=== PATIENT | female | born 1980 | race Caucasian/White ===

== ENCOUNTER → 2018-01-08 12:10 | Outpatient (CLI) | payer BC, SELFPAY ==
--- NOTE | 2018-01-08 12:09 | US_ITS ---
STUDY: ABDOMINAL ULTRASOUND - RIGHT UPPER QUADRANT REASON FOR VISIT: Female, 38 years old. RUQ PAIN X 6 MONTHS F/U 09/28/16 CT HX OF KIDNEY STONES TECHNIQUE: Ultrasound evaluation of the right upper quadrant was performed with real-time and static cristobal-scale imaging. TECHNICAL QUALITY: Adequate. COMPARISON: 09.28.16 CT FINDINGS: Liver: The liver measures 16.6 cm. There is increased echogenicity consistent with fatty infiltration. The bile ducts are within normal limits. There is hepatic color flow. The direction of portal flow is hepatopetal. There is demonstrated mass lesion. Lesions or echogenic and measure 13 x 12 mm and 20 x 20 mm. Gallbladder: Normal distended gallbladder. The gallbladder wall measures 2.3 mm. There is a positive sonographic Chavez's sign. There is no pericholecystic fluid. There are multiple echogenic structures within the gallbladder, consistent with multiple gallstones. Common Bile Duct (C.B.D.): The common bile duct measures 3.5 mm. Pancreas: Normal size of the head, body and tail of the pancreas. There is normal echogenicity of the pancreas. There is no demonstrated pancreatic mass or cyst. Right Kidney: Normal size of the right kidney. The right kidney measures 10.8 x 4.9 x 4.7 cm. Normal renal cortex. The right cortex measures 1.3 cm. There is no demonstrated renal mass or cyst. There is no right hydronephrosis. There are 2 calcifications in the right kidney. These measure 3 mm. US/Abdomen Limited IMPRESSION: Fatty liver. 2 echogenic lesions in the liver may represent hemangiomas. However these are incompletely evaluated by ultrasound. MRI with gadolinium could further evaluate. Cholelithiasis. There is a positive sonographic Chavez's sign. Cholecystitis should be considered. There is no right hydronephrosis. There are 2 calcifications in the right kidney. These measure 3 mm. Electronically Signed: Horace Martines MD at 17:11 EDT , Service support ,
== END ==
PROVIDERS: Family Provider Family Medicine; PCP Family Medicine; Visit Provider Family Medicine
DX: R10.9 Unspecified abdominal pain (principal)
CPT/HCPCS: 76705

== ENCOUNTER 2018-01-12 05:59 | Day surgery (SDC) | payer BC, SELFPAY ==
[2018-01-12] VITALS (8 sets, daily range): BP systolic 140–158; BP diastolic 80–106; PULSE 57–72; RESP 12–16; TEMP 36.5–37; O2SAT 95–99; BMI 32.1
--- NOTE | 2018-01-12 06:12 | EKG12_ITS ---
Test Reason : PRE-OP Blood Pressure : / mmHG Vent. Rate : 072 BPM Atrial Rate : 072 BPM P-R Int : 154 ms QRS Dur : 088 ms QT Int : 408 ms P-R-T Axes : 040 025 022 degrees QTc Int : 446 ms Normal sinus rhythm Normal ECG When compared with ECG of 18-JAN-2010 10:51, No significant change was found Confirmed by JORGE LUIS LOYA ([id number]), editorial project manager PORTIA MONZON ([id number]) on 01/16/2018 4:09:24 PM Referred By: Stepan Corona Confirmed By:JORGE LUIS LOYA
[2018-01-12 06:21] LABS: Internal QC Validated? YES +Cl - CLEAR BKGD; Pregnancy, Urine Negative Negative
--- NOTE | 2018-01-12 07:30 | GALL_PTH ---
PATIENT: CONNOR VALLADARES LOC: [facility] [place] U#:[id number] AGE/SX: 38/F ROOM: RE01/12/[address]: Dr. Stepan Corona MD : 1980 BED: DIS: 01/12/2018 SPEC #: [id number] RECD: 01/12/18 09:49 STATUS: ERIC TOMPKINS #: [id number] NEGRITA: 01/12/18 07:[address]: Stepan Corona DEPT: SURGICAL PATHOLOGY RECD BY: Dyllan Linton ENTERED: 01/12/18 10:39 SP TYPE: MATEO ROBERTSON DR: Dr. Weston Henry MD Tissues: Gallbladder, NOS Procedures: Surgery Specimen Level III HEADER OPERATION: Laparoscopic cholecystectomy with IOC PRE-OP DIAGNOSIS: Biliary colic, cholelithiasis TISSUE SUBMITTED: Gallbladder and contents MICROSCOPIC DIAGNOSIS Gallbladder and contents: Mild chronic cholecystitis and cholelithiasis. SJ:baudilio 01/15/18 MICROSCOPIC DESCRIPTION Slides are reviewed. GROSS DESCRIPTION Received is one container labeled with the patient's name and designated gallbladder. The specimen consists of a gallbladder measuring 8.5 x 3.5 x 3.5 cm. The external surface is smooth and glistening. Focally, it is granular, hemorrhagic and contains cautery artifact. The lumen of the gallbladder contains greenish-yellow mucoid bile and multiple black calculi ranging in size from <0.1 to 1.2 cm in greatest dimension. The mucosa is bile-stained and without any mass lesions. The gallbladder wall averages 0.1 cm in thickness and is free of mass lesions. Cut Out Machine Operator sections of the gallbladder and the cystic duct are submitted in one cassette. / AM:baudilio 01/12/18 TC:3 CPT: 63034
--- NOTE | 2018-01-12 08:00 | RAD_ITS ---
CLINICAL HISTORY: Female, 38 years old. Biliary colic and cholelithiasis. PROCEDURE: CHOLANGIOGRAM - Fluoroscopy services provided for clinical procedure. Please refer to operating physician's procedure note for additional detail. FLUOROSCOPY TIME (if supplied): (Not provided.) minutes/seconds TECHNIQUE: 3 intraprocedural, fluoroscopic spot images of the biliary system are submitted. Opacified intrahepatic and extrahepatic ducts appear unremarkable without filling defect. Opacified duodenal C-sweep appears normal. Multiple filling defects are seen within the gallbladder lumen. RAD/Cholangiogram/ O R,Initial IMPRESSION: Unremarkable appearing opacified intrahepatic and extra hepatic bile ducts. No evidence of calculi. Multiple calculi within the gallbladder lumen. No significant incidental finding. Comment: Fluoroscopy services provided for clinical procedure. Please refer to operating physician's procedure note for additional detail. Electronically Signed: Owen Marquez MD at 8:28 EDT , Service support ,
[2018-01-12] MEDS: Bupiv/Epi 0.5% Mpf 30 ML Vial (08:30)
--- NOTE | 2018-01-12 08:35 | PCM.DC.GB ---
Discharge Diet: Light diet - advance as tolerated Discharge Activity: Return to Normal Activity, May Not Drive - for 2-3 days or while taking narcotic pain medicataions., - - Do not drive, work heavy equipment or sign legal documents for 24 hours. May shower in (days): 1 - with the bandage in place. Lifting Restrictions: 20 lbs for 2 weeks Additional Activity Instructions:: Pain medication may cause nausea. You should typically eat light foods as you take your pain medications. Pain medication may also cause constipation. If this is a problem for you, please discuss with your doctor. Call your doctor if your incision/area has: Continuous Slow Oozing, Sudden Increased Bleeding, Increased Pain/ Swelling, Increased Redness, Foul Smelling Discharge, Fever of 101 or Higher Call your doctor if you observe: Fever of 101 or Higher Suture Line Care: Avoid Pulling/Pushing, Avoid Pinching/Bending Additional Dressing/Incision Instructions:: Leave operative bandaids on for 2 days. When you remove dressing, leave Steri-Strips on until your follow-up appointment, or until the Steri-Strips fall off on their own. Allergies/Adverse Reactions: Allergies latex Allergy (Unknown, Verified 01/11/18 08:23) Unknown Sulfa (Sulfonamide Antibiotics) Allergy (Verified 01/11/18 08:23) Hives Medications to take at Discharge cholecalciferol (vitamin D3) 2,000 unit capsule 2,000 unit PO QDAY 01/10/18 multivitamin tablet 1 tab PO QDAY 01/10/18 omega 9-lws-oax-fish oil 900 mg-1,400 mg capsule,delayed release cap PO 01/10/18 Oxycodone HCl/Acetaminophen [Percocet 5/325] 1 - 2 tablet PO Q4H PRN PRN 7 Days #40 tablet 01/12/18 The following prescriptions were given: Oxycodone HCl/Acetaminophen [Percocet 5/325] 1 - 2 tablet PO Q4H PRN PRN 7 Days #40 tablet PRN Reason: Pain Primary Care Physician: Isreal Henry MD [Primary Care Provider] - Please Follow Up With: Stepan Corona MD When: Please call to schedule 2 week follow up appointment. [phone]
--- NOTE | 2018-01-12 08:36 | PCM.OPRPT ---
Problem List (1) Biliary colic Status: Acute Report of Operation Date of Procedure: 01/12/18 Pre-Operative Diagnosis: Biliary colic Post-Operative Diagnosis: Biliary colic Surgery/Procedure Performed:: Laparoscopic cholecystectomy with intraoperative cholangiogram Specimen's removed: Gallbladder and contents Description of Procedure: After obtaining informed consent patient was brought back to the operating room. General anesthesia was induced. The abdomen was prepped and draped in usual sterile fashion. A small midline incision was made superior to the umbilicus and deepened to the level of fascia. The fascia was elevated and incised. Next the peritoneum was elevated and incised in the same fashion. Finger sweep was performed and the Rao trocar was placed into the abdomen. The balloon was inflated. The abdomen was inflated to 15 mmHg. Next a camera was introduced into the abdomen and the abdomen was inspected. Next under direct visualization three 5-mm ports were placed one subxiphoid and 2 subcostal. The abdomen was inspected. The right ovary appeared to have cysts and small white nodule. Pictures were taken and given to the patient. There is also green to brown colored ascites in the pelvis. Next the gallbladder was elevated and retracted toward the right shoulder. The peritoneum was stripped from the gallbladder. The infundibulum was located and retracted laterally. Next the triangle of Calot was dissected and the cystic duct and cystic artery were identified. Cholangiograms were performed. The Daniel catheter was used to clamp across the infundibulum and the needle was inserted into the gallbladder. Under fluoroscopy contrast was instilled into the gallbladder and the common duct, cystic duct as well as proximal hepatic ducts were identified. There was good filling of the duodenum. There were no filling defects noted in the common bile duct. The clamp was removed as well as the needle and the infundibulum was grasped once more. Three hemolock clips were placed across the cystic duct. The cystic duct was then divided leaving 2 clips on the stump. The cystic artery was clipped and divided in the same fashion. The hook cautery was then used to take the gallbladder off of the gallbladder bed. There was a small amount of bile spillage while the gallbladder is being taken off the liver bed. Hemostasis was obtained. Gallbladder fossa was irrigated and no active bleeding or bile leakage was noted. Next the camera switched to a 5 mm camera and introduced in the subxiphoid port. An Endopouch bag was placed through the umbilical port and the gallbladder was placed into it. The gallbladder was then removed through the umbilical incision. The camera was then reinserted through the umbilical port. The gallbladder fossa was inspected once more and noted to be hemostatic with no leaking bile. The abdomen was suctioned dry the 5 mm ports were removed under direct visualization. The umbilical port was then removed and the air was removed from the abdomen. Next using an 0 Vicryl suture the umbilical fascia was closed in a [id number] fashion. The umbilical port site was irrigated local anesthetic was administered to all the incisions. All the incisions were closed subcuticular 4-0 Monocryl sutures followed by Steri-Strips and dressings. The patient was awoken and taken to PACU in stable condition. - Admit VTE Documentation VTE Mechan Device Prophylaxis: SCD's
== END 2018-01-12 12:36 | disposition home or self-care (01) ==
LOC: SDC 06:01 → AC 06:02
PROVIDERS: Family Provider Family Medicine; PCP Family Medicine; Visit Provider Surgery
PROC: (CPT 47610; principal; 2018-01-12 07:10)
DX: K80.10 Calculus of gallbladder with chronic cholecystitis without obstruction (principal); Z79.899 Other long term (current) drug therapy; Z87.19 Personal history of other diseases of the digestive system; I10 Essential (primary) hypertension
CPT/HCPCS: 47563; 74300; 76000; 81025; 88304; 93005; J7120; J2405

== ENCOUNTER 2018-01-15 01:42 | Emergency (ER) | payer BC, SELFPAY ==
[2018-01-15 01:43] VITALS: BP 188/120; PULSE 78; RESP 20; TEMP 36.8; O2SAT 98; BMI 33.5
--- NOTE | 2018-01-15 01:58 | CT_ITS ---
STUDY: CT ABDOMEN AND PELVIS WITH CONTRAST REASON FOR EXAM: Female, 38 years old. Pain and distention. Status post cholecystectomy 2 days ago. 8 pound weight gain since Monday. History of right oophorectomy. History of polycystic ovaries. RADIATION DOSAGE (If Supplied By Facility): CTDIvol = ( 20.16 ) mGy, DLP = ( 2125.69 ) mGycm TECHNIQUE: Transaxial images were obtained from the dome of the diaphragm to the symphysis pubis without oral contrast. 100ML ml of Isovue 300 contrast was administered. Sagittal and coronal images were reconstructed. Individualized dose optimization techniques were used for this CT. COMPARISON: Intraoperative cholangiogram 01/12/2018. Abdominal ultrasound 01/08/2018. CT scan abdomen and pelvis 09/28/2016. FINDINGS: There are small bilateral pleural effusions.. As seen on series 2, axial image 12, there is a 4.9 mm noncalcified left lower lobe lung nodule. This nodule can be seen retrospectively on the September 2016 exam and it has not increased in size over the last 15 months. The visualized portions of the heart are within normal limits. There are areas of subcutaneous fat infiltration in the anterior and right anterior abdomen, consistent with sites of access for laparoscopic cholecystectomy. There is no demonstrated abscess or hematoma in these regions. There are 1.5 cm and 1.8 cm low-attenuation space-occupying lesions in the right lobe of the liver, also present on the 2017 exam, with no increase in size. These demonstrate peripheral puddling contrast enhancement and are likely represent hemangiomas. The gallbladder surgically absent. There is mild infiltration of fat in the gallbladder fossa, an unremarkable postoperative finding. There is no evidence for bile leakage, abscess, or hematoma. There is no bile duct dilatation. Normal spleen. Normal pancreas. Normal bilateral adrenal glands. Normal right kidney. There is a small left renal cyst. Otherwise, normal left kidney. Normal visualized stomach. Normal small intestine. There are multiple colonic diverticula consistent with diverticulosis. The appendix is visualized on axial images 72-79. It contains radiodense material but otherwise appears normal, and there is no evidence for appendicitis. Normal abdominal aorta. Normal inferior vena cava. Normal retroperitoneum. Normal urinary bladder. There is a T-shaped IUD in the fundus and body of uterus. There is a 6.9 cm left ovarian cystThere is minimal free fluid in the posterior cul-de-sac of the pelvis. Normal abdominal wall. Normal osseous structures. CT/Abdomen/Pelvis W IV Cont ONLY IMPRESSION: Unremarkable postop findings in the abdomen related to recent laparoscopic cholecystectomy. No evidence for bile leak, hematoma, or abscess. No bile duct dilatation. Small bilateral pleural effusions. 4.9 mm noncalcified left lower lobe lung nodule which has been stable in size for at least 15 months. Based on Fleischner Society Guidelines, suggested follow-up for a 4-6 mm lung nodule is as follows: Low risk patients: Follow-up CT Chest at 12 months. If no change, no further imaging needed. High risk patients: Initial follow-up CT Chest at 6 -12 months and then at 18 - 24 months if no change. 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 Small left renal cyst. No demonstrated urinary calculi or hydronephrosis. Colonic diverticulosis, without evidence for acute diverticulitis. 6.9 cm left ovarian cyst. Would suggest follow-up ultrasound in a few months to assess stability. IUD is in position. Minimal free fluid in the posterior cul-de-sac and the pelvis. : Electronically Signed: Kemar Landeros MD at 3:58 EDT , Service support ,
[2018-01-15] MEDS: 0.9% Normal Saline 1,000 ML 1000 ML IV (02:18)
[2018-01-15] MEDS: HYDROmorphone 0.5 MG/0.5 ML SYRINGE IV (02:20)
[2018-01-15 02:26] LABS: Absolute Lymphocyte Count 2.93 X10^3/ul (0.83-4.51); Absolute Neutrophil Count 3.6 X10^3/uL (2.0-7.7); Basophil# 0.05 X10^3/uL; Basophil% 0.6 % (0-1); Eosinophil# 0.48 X10^3/uL; Eosinophils% 6.2 % (0-5); Hematocrit 38.6 % (37-47); Hemoglobin 12.9 g/dl (12.0-15.0); Lymphocyte # 2.93 X10^3/ul (4.0); Lymphocyte % 37.6 % (19-41); Mean Corp Hgb Conc 33.4 g/gl (32-36); Mean Corpuscular Hgb 28.7 pg (27.0-32.0); Mean Corpuscular Volume 85.8 fL (81-99); Mean Platelet Vol. 11.7 fl (6.2-12.0); Monocyte# 0.73 X10^3/uL; Monocyte% 9.4 % (0-10); Neutrophil # 3.59 X10^3/uL (2.7-7.7); Neutrophil % 45.9 % (47-70); Platelet Count 277 K/mm3 (150-450); RBC Distribution Width CV 14.4 % (11.6-14.6); RBC Distribution Width SD 43.9 fl (35.1-43.9); White Blood Count 7.8 K/mm3 (4.4-11.0)
[2018-01-15 02:29] LABS: POSITIVE COUNT NO; POSITIVE DIFFERENTIAL NO; POSITIVE MORPHOLOGY NO
[2018-01-15 02:43] LABS: AST(SGOT) 70 U/L (15-37); Alanine Aminotransfer ALT/SGPT 79 U/L (13-56); Albumin, Serum 3.5 g/dL (3.2-5.0); Alkaline Phosphatase 82 U/L (45-117); Anion Gap 6 (5-15); BUN 10 mg/dL (7-18); BUN/Creat Ratio 8.4 RATIO (10-20); Calcium,Total 8.9 mg/dL (8.5-10.1); Chloride 108 mmol/L (98-107); Creatinine, Serum 1.19 mg/dL (0.55-1.02); EST Glomerular Filtration Rate 54 mL/min (>60); Est Glom Filt Rate - Afr Amer 65 mL/min (>60); Estimated Creatinine Clearance 57.68 ml/min; Globulin 3.1 g/dL (2.2-4.2); Glucose 89 mg/dL (74-106); Lipase 99 U/L (73-393); Potassium 3.8 mmol/L (3.5-5.1); Protein, Total 6.6 g/dL (6.4-8.2); Sodium Level 141 mmol/L (136-145)
[2018-01-15 04:09] VITALS: PULSE 68; RESP 15; O2SAT 98
--- NOTE | 2018-01-15 04:12 | ED.VISSUMM ---
- ER Visit Summary Date of Service: 01/15/18 Chief Complaint: Abdominal pain History of Present Illness: The patient is a [address] Corona and Dr. Carrera. Patient had a laparoscopic cholecystectomy [address] Corona. She reports that her pain worsened yesterday. She reports that it is an aching diffuse pain and a sharp pain at the incision sites. It is 8 out of 10 with movement 5 out of 10 when she remains still. She denies any nausea, vomiting, or diarrhea. Her last bowel movement was today. It was soft. She has had no melena or hematochezia. No dysuria or frequency. Also reports that she has had an 8 pound weight gain. Physical Examination: Vitals: 98.3, 188/120, 78, 20, 98% on room air which is not hypoxic. General: Well-nourished and well-developed. Head: Normocephalic atraumatic. Neck: Supple, no lymphadenopathy. No JVD. Nontender. Cardiovascular: Regular rate and rhythm. No murmurs. Respiratory: No respiratory distress. Clear to auscultation bilaterally. Abdominal: Soft, mild diffuse tenderness palpation, nondistended, normal bowel sounds. No guarding, rebound, or peritoneal signs. Visions are clean, dry, and intact. No evidence of infection. Back: Nontender. Extremities: Nontender, no edema. Skin: Normal color, no rash. Neurologic: Alert and oriented ?3. Cranial nerves II through XII are intact. Normal strength and sensation. Psych: Normal affect. Test Results: CBC is marked for segmented neutrophils of 46 and eosinophils of 6. Chem-7 is more for chloride of 108 and creatinine 1.19. LFTs marked for an ALT of 79, AST of 70. Lipase is normal. Clinical Impression(s) from Imaging Studies Abdomen/Pelvis CT 01/15/18 01:58 IMPRESSION: Unremarkable postop findings in the abdomen related to recent laparoscopic cholecystectomy. No evidence for bile leak, hematoma, or abscess. No bile duct dilatation. Small bilateral pleural effusions. 4.9 mm noncalcified left lower lobe lung nodule which has been stable in size for at least 15 months. Based on Fleischner Society Guidelines, suggested follow-up for a 4-6 mm lung nodule is as follows: Low risk patients: Follow-up CT Chest at 12 months. If no change, no further imaging needed. High risk patients: Initial follow-up CT Chest at 6 -12 months and then at 18 - 24 months if no change. 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 Small left renal cyst. No demonstrated urinary calculi or hydronephrosis. Colonic diverticulosis, without evidence for acute diverticulitis. 6.9 cm left ovarian cyst. Would suggest follow-up ultrasound in a few months to assess stability. IUD is in position. Minimal free fluid in the posterior cul-de-sac and the pelvis. Emergency Department Course and Treatment: Patient was treated with Dilaudid IV. Repeat blood pressure is 190/110. Treatment Plan: I had a prolonged discussion with the patient about the findings on the CT. She already knew about the left lower lobe nodule. Her last CT was 15 months ago and this is not changed in size. She also states that she gets ovarian cysts monthly and that this is not unusual for her. Discussed the possible of admission to the hospital and she would like to go home. She will be discharged instructions to follow-up with Dr. Carrera in 1-2 days for repeat blood pressure and evaluation. Follow-up Dr. Corona as soon as possible. I did discuss the patient with Dr. Leonard, who is on-call for Dr. Corona. Disposition: To home in improved and stable condition. Impression: 1. 4 days status post laparoscopic cholecystectomy. 2. 4.9 mm noncalcified left lower lobe nodule. 3. 6.9 cm left ovarian cyst. 4. Small bilateral pleural effusions. This note was generated with [employer] dictation software. It may contain incorrect words, spelling, and punctuation that were not noted in review of the chart prior to signing ED Disposition - Plan for ED Patient: Disposition: Home or Assisted Living Chief Complaint: Abd Pain Instructions: ED Post Op Pain Referrals: Isreal Henry MD [Primary Care Provider] - 1-2 Days if not improving Stepan Corona MD [STAFF PHYSICIAN] - As soon as possible
[2018-01-15 05:01] VITALS: BP 190/110; PULSE 68; RESP 15; O2SAT 98
== END 2018-01-15 04:00 | disposition home or self-care (01) ==
LOC: ED 02:07
PROVIDERS: Emergency Provider Emergency Medicine; Family Provider Family Medicine; PCP Family Medicine
DX: R10.9 Unspecified abdominal pain (principal); K57.30 Diverticulosis of large intestine without perforation or abscess without bleeding; N83.202 Unspecified ovarian cyst, left side; D18.09 Hemangioma of other sites; N28.1 Cyst of kidney, acquired; R91.1 Solitary pulmonary nodule; J90 Pleural effusion, not elsewhere classified; R06.00 Dyspnea, unspecified; Z87.442 Personal history of urinary calculi; Z97.5 Presence of (intrauterine) contraceptive device; Z90.49 Acquired absence of other specified parts of digestive tract
CPT/HCPCS: 74177; 80048; 80076; 83690; 85025; 96361; 96374; 99284; J7030; Q9967; A4216

== ENCOUNTER → 2018-01-23 12:01 | Outpatient (CLI) | payer BC, SELFPAY ==
--- NOTE | 2018-01-23 12:06 | US_ITS ---
STUDY: ULTRASOUND TRANSVAGINAL CLINICAL: Female, 38 years old. Bloating TECHNIQUE: Transvaginal COMPARISON: None. FINDINGS: Normal uterine size measuring 5.5 x 6.3 x 4.7 cm in maximal craniocaudal dimension. There are no myometrial masses. Normal endometrial thickness measuring 6 mm. It is hyperechoic. There are no endometrial masses, and there is no fluid in the endometrial cavity. An IUD is noted in the fundal portion of the endometrium. Normal uterine cervix. Nonvisualization of the right ovary. Normal left ovary, measuring 6.0 x 6.3 x 3.2 cm. There is a 3.1 cm complex cystic nodule. There is no free fluid in the pelvis. US/Pelvic (Non ) IMPRESSION: Complex left ovarian cystic nodule. IUD in the uterus. Electronically Signed: Supa Miller DO at 21:45 EDT Tel [phone], Service support ,
--- NOTE | 2018-01-23 12:06 | US_ITS ---
STUDY: ULTRASOUND TRANSVAGINAL CLINICAL: Female, 38 years old. Bloating TECHNIQUE: Transvaginal COMPARISON: None. FINDINGS: Normal uterine size measuring 5.5 x 6.3 x 4.7 cm in maximal craniocaudal dimension. There are no myometrial masses. Normal endometrial thickness measuring 6 mm. It is hyperechoic. There are no endometrial masses, and there is no fluid in the endometrial cavity. An IUD is noted in the fundal portion of the endometrium. Normal uterine cervix. Nonvisualization of the right ovary. Normal left ovary, measuring 6.0 x 6.3 x 3.2 cm. There is a 3.1 cm complex cystic nodule. There is no free fluid in the pelvis. US/Transvaginal Non- IMPRESSION: Complex left ovarian cystic nodule. IUD in the uterus. Electronically Signed: Supa Miller DO at 21:45 EDT Tel [phone], Service support ,
== END ==
PROVIDERS: Family Provider Family Medicine; PCP Family Medicine; Visit Provider Obstetrics & Gynecology
DX: N83.202 Unspecified ovarian cyst, left side (principal)
CPT/HCPCS: 76830; 76856; 93976

== ENCOUNTER → 2018-01-29 11:00 | Outpatient (CLI) | payer BC, SELFPAY ==
[2018-01-29 12:22] LABS: Hemoglobin A1c 5.5 % (4.2-6.3)
[2018-01-30 09:07] LABS: Cancer Antigen 125 48.1 U/mL (0.0-38.1)
== END ==
PROVIDERS: Family Provider Family Medicine; PCP Family Medicine; Visit Provider Obstetrics & Gynecology
DX: N83.202 Unspecified ovarian cyst, left side (principal)
CPT/HCPCS: 36415; 83036; 86304

== ENCOUNTER → 2018-02-22 10:00 | Outpatient (CLI) | payer BC, SELFPAY ==
--- NOTE | 2018-02-22 10:00 | DT_ITS ---
This patient was seen during an EMR downtime February 19, 2018 - February 26, 2018. This patient may have a combination of paper and electronic documentation or all paper documentation. All documentation is viewable within the e-chart portion of [facility] for each patient visit.
== END ==
PROVIDERS: Family Provider Family Medicine; PCP Family Medicine; Visit Provider Nurse Practitioner Women's Health
DX: N83.209 Unspecified ovarian cyst, unspecified side (principal)
CPT/HCPCS: 36415; 86304

== ENCOUNTER 2018-03-01 10:03 | Day surgery (SDC) | payer BC, SELFPAY ==
[2018-03-01] VITALS (9 sets, daily range): BP systolic 117–136; BP diastolic 71–82; PULSE 69–113; RESP 16–18; TEMP 36.6–37.2; O2SAT 95–100; BMI 31.2
--- NOTE | 2018-03-01 | FLU_PTH ---
PATIENT: CONNOR VALLADARES [place] [facility] [place][id number] AGE/SX: 38/F ROOM: RE03/01/[address]: Dr. Birgit Covarrubias MD : 1980 BED: DIS: 03/01/2018 SPEC #: [id number] RECD: 03/01/18 13:24 STATUS: ERIC TURNER #: [id number] NEGRITA: 03/01/18 00:[address]: Birgit Covarrubias DEPT: CYTOLOGY RECD BY: Dyllan Linton ENTERED: 03/01/18 13:24 SP TYPE: Fluid OTHR DR: Dr. Weston Henry MD Tissues: Pelvis, NOS Procedures: Pap Stain (control) Special Stain Group II Surgery Specimen Level IV Cell Block Cytospin Fluid HEADER OPERATION: Laparoscopic left salpingo-oophorectomy, right salpingectomy PRE-OP DIAGNOSIS: Left ovarian cyst; left lower quadrant pain, dyspareunia TISSUE SUBMITTED: Cell washings for cytology DIAGNOSIS CYTOLOGY Cell washings for cytology (cytospin and cell block): Negative for malignant cells. SJ:rg 03/02/18 COMMENT Please correlate with corresponding surgical specimen ([id number]). CYTOLOGY STUDY Slides are reviewed. The specimen entirely consists of benign mesothelial cells. CYTOLOGY GROSS Received is 20 ml of clear yellow fluid labeled with the patient's name and and designated per the requisition as cell washings. Submitted for cytology preparation including cell block. 03/01/18 TC:5 CPT: 98329, 71131
[2018-03-01 10:36] LABS: Internal QC Validated? YES +Cl - CLEAR BKGD; Pregnancy, Urine Negative Negative
--- NOTE | 2018-03-01 11:30 | OV_PTH ---
PATIENT: CONNOR VALLADARES LOC: [facility] – [place] U#:[id number] AGE/SX: 38/F ROOM: RE03/01/[address]: Dr. Birgit Covarrubias MD : 1980 BED: DIS: 03/01/2018 SPEC #: [id number] RECD: 03/01/18 13:19 STATUS: ERIC TURNER #: [id number] NEGRITA: 03/01/18 11:[address]: Birgit Covarrubias DEPT: SURGICAL PATHOLOGY RECD BY: Dyllan Linton ENTERED: 03/01/18 13:24 SP TYPE: OVARY OTHR DR: Dr. Weston Henry MD Tissues: Left ovary Procedures: Surgery Specimen Level IV HEADER OPERATION: Laparoscopic left salpingo-oophorectomy, right salpingectomy PRE-OP DIAGNOSIS: Left ovarian cyst, left lower quadrant pain, dyspareunia TISSUE SUBMITTED: Bilateral fallopian tubes, left ovary with cyst MICROSCOPIC DIAGNOSIS Bilateral fallopian tubes and left ovary with cyst, left salpingo-oophorectomy and right salpingectomy: Left ovary ? physiologic follicular and corpus luteum cysts (largest cyst measuring 2.5 cm in greatest dimension). Bilateral fallopian tubes - no pathologic diagnosis. PETER:baudilio 03/02/18 MICROSCOPIC DESCRIPTION Slides are reviewed. GROSS DESCRIPTION Received in fixative is one container labeled with the patient's name and designated bilateral fallopian tubes, left ovary. The specimen consists of a cystic ovary identified as left ovary and adjacent fallopian tube and detached right fallopian tube. The right fallopian tube is received in two pieces and measures 5.5 cm in length and 0.5 cm in diameter. The fimbrial end is identified. The left fallopian tube adjacent to the ovary measures 6 cm in length and 0.6 cm in diameter. No tubo-ovarian adhesions are noted. The fimbrial end is identified. A paratubal cyst is also noted measuring 1 cm in greatest dimension. Sections of both fallopian tubes reveal unremarkable cut surfaces. The soft to cystic left ovary weighs 40 gm and measures 6 x 4.5 x 3 cm. The outer surface is smooth without any papillation and it is inked black. Sections reveal multiple cysts filled with clear to hemorrhagic fluid. The largest cyst measures 2.5 cm in greatest dimension. Enterprise Application Administrator sections are submitted in six cassettes as follows: 1 ? right fallopian tube, 2 ? left fallopian tube, 3-6 ? left ovary. / PETER:baudilio 03/01/18 TC:5 CPT: 04418 x2
--- NOTE | 2018-03-01 11:35 | PCM.HPOB.BLA ---
History and Physical Date of Admission: 03/01/18 Intake Visit Reasons: OVARY ISSUES AFTER CHOLECYSTECTOMY Chief Complaint: ER Follow Up Ovarian Cyst Medical Records Director Required: No Is patient in pain?: No Allergies latex Allergy (Unknown, Verified 01/22/18 08:50) Unknown Sulfa (Sulfonamide Antibiotics) Allergy (Verified 01/22/18 08:50) Hives Medications cholecalciferol (vitamin D3) 2,000 unit capsule 2,000 unit PO QDAY 01/10/18 [History Confirmed 01/22/18] multivitamin tablet 1 tab PO QDAY 01/10/18 [History Confirmed 01/22/18] omega 0-ewj-nlh-fish oil 900 mg-1,400 mg capsule,delayed release 1 cap PO DAILY 01/10/18 [History Confirmed 01/22/18] fluconazole 150 mg tablet 150 mg PO .COMPLEX #2 tab 01/22/18 [Rx Confirmed 01/22/18] lisinopril 20 mg tablet 20 mg PO QDAY 01/22/18 [History Confirmed 01/22/18] Is last menstrual period known: No Post menopausal: No Patient : No : No PFSH Medical History Diarrhea (Acute) Nausea (Acute) Abdominal pain (Acute) Elevated liver enzymes (Acute) PCOS (polycystic ovarian syndrome) (Acute) Hypertension (Chronic) Surgical History Status post (Acute) History of cholecystectomy (Acute) Family History Father Hypertension High cholesterol Cancer Prostate Prostate cancer Social History Smoking Status: Never smoker second hand exposure: No alcohol intake: current alcohol intake frequency: a few times a month details: social substance use type: does not use caffeine: Yes what type of physical activity do you participate in: walking, running, weight training frequency: 3-4 times per week seatbelt use: always do you feel safe at home: Yes 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 she has had intermittent pain a dbloating for the last few months and had her gal lbladder taken out a week ago and the surgeon saw a right ovarian abnormality that he recommended follow up. she had a ct scan that also showed a small pulmonary nodule that is stable form the previous 15 month scan, mild pleural effusions that may be from postop changes. she has a history of ovarian cysts and pain over the years. she has a hisoty rof a rudimentary right ovary. she had pcos in the past. menses are light and infrequent on the IUD. She has also had significant persistent dyspareunia for the last few months that severely interferes with quality of life for her. Female Reproductive History Questions: Dyspareunia: Yes Pregancy History 4 Elective abortions Hx Para 3 Spontaneous abortions Hx # Term Pregnancies Ectopic pregnancies Hx # Pregnancies Multiple births # of living children Past Pregnancies Del. Date Name GA/Weeks Outcome Route Bth Weight Infant Gen Labor Lgth Anesthesia Del Locatn Provider FOB Unknown 2010 Carroll and Ev live - full term Unknown 2006 Jie live - full term Unknown 2009 Stillborn ROS Const Constitutional: Reports system reviewed and no additional complaints, except as docu GI GI: Reports bloating, abdominal pain and as per HPI : Reports as per HPI Exam Const General: cooperative, healthy appearing, comfortable, no acute distress, well developed Nutritional Appearance: average body habitus Orientation: alert HENMT Head: normal to inspection, normocephalic Neck Neck: normal visual inspection, trachea midline Thyroid: thyroid normal Resp Effort & Inspection: normal respiratory effort GI Inspection: normal to inspection, non-distended Palpation: soft, no hepatosplenomegaly, tender in the LLQ General: bladder normal to palpation External Female Exam: normal appearance of the urethra, erythema (chronic skin discoloration of groin and candidal appearance) Urethra: normal appearance of the urethra, normal palpation, no discharge Speculum Exam - Vagina: normal appearance of the vagina, normal vaginal discharge Speculum Exam - Cervix: normal appearance of the cervix, nontender Bimanual Exam- Vagina & Uterus: bladder normal to palpation, No cervical tenderness, normal bimanual exam, uterine size normal, uterine shape normal, uterine mobility normal, uterine consistency normal, normal cervical palpation, uterus non-tender Bimanual Exam- Adnexa, other: pelvic support normal, adnexal tenderness (left enlargement) on the left Pelvic Support: normal Skin General: no rashes or lesions noted Assessment & Plan Problems 1. Ovarian cyst, left N83.202 likely secondary to left ovarian cyst discussed expectant management versus removal, plan laparoscopic ovarian cystectomy possible oophorectomy and sterilization salpingectomy at same time. recommend US and CA125 first. 2. Left lower quadrant pain R10.32 3. Dyspareunia due to medical condition in female N94.19 likely secondary to left ovarian cyst discussed expectant management versus removal, plan laparoscopic ovarian cystectomy possible oophorectomy and sterilization salpingectomy at same time. recommend US and CA125 first. 4. Candidal intertrigo B37.2 Plan hga1c ordered due to recurrent buzz and htn. lengthy discussion about dyspareunia and pelvic pain, left ovarian cyst. discussed expectant management versus surgical removal. discussed risks of torsion and clinical presentation reviewed. patient wishes to proceed with surgical intervention and this is reasonable. i discussed risks of early menopause if oophorectomy is needed and rudimentary ovary is nonfunctional. pateint was seen and clinically relevant updates to the h and p were made
[2018-03-01 11:41] LABS: Hematocrit 42.4 % (37-47); Mean Corpuscular Hgb 28.1 pg (27.0-32.0); Mean Corpuscular Volume 85.1 fL (81-99); Mean Platelet Vol. 11.2 fl (6.2-12.0); Platelet Count 328 K/mm3 (150-450); RBC Distribution Width CV 14.2 % (11.6-14.6); RBC Distribution Width SD 43.8 fl (35.1-43.9); Red Blood Count 4.98 M/mm3 (4.2-5.4); White Blood Count 8.8 K/mm3 (4.4-11.0)
[2018-03-01 11:43] LABS: Scan Indicated on CBC? Y/N NO
[2018-03-01] MEDS: Bupivacaine 0.25% 30 ML Vial (12:33)
--- NOTE | 2018-03-01 13:47 | PCM.DC.TUB ---
Discharge Diet: No Restrictions - Increase fluid intake for the next 48 hours. Discharge Activity: Return to Normal Activity, May Drive - when you are no longer taking narcotic pain medications., May Shower, May Take a Tub Bath - in 7 days Additional Activity Instructions:: Ambulate often the next week after surgery. Nothing in the vagina for 5 days. Call your doctor if your incision/area has: Continuous Slow Oozing, Sudden Increased Bleeding, Increased Pain/ Swelling, Increased Redness, Foul Smelling Discharge Call your doctor if you observe: Fever of 101 or Higher Allergies/Adverse Reactions: Allergies latex Allergy (Unknown, Verified 02/22/18 12:54) Unknown Sulfa (Sulfonamide Antibiotics) Allergy (Verified 02/22/18 12:54) Hives Medications to take at Discharge cholecalciferol (vitamin D3) 2,000 unit capsule 2,000 unit PO QDAY 01/10/18 multivitamin tablet 1 tab PO QDAY 01/10/18 omega 9-mvy-qui-fish oil 900 mg-1,400 mg capsule,delayed release 1 cap PO DAILY 01/10/18 lisinopril 20 mg tablet 20 mg PO BID 01/22/18 Amlodipine [Norvasc] 5 mg PO DAILY 02/22/18 Primary Care Physician: Isreal Henry MD [Primary Care Provider] - Please Follow Up With: Birgit Covarrubias MD - [phone]
--- NOTE | 2018-03-01 13:51 | PCM.OPRPT ---
Problem List (1) Dyspareunia due to medical condition in female Status: Acute Comment: likely secondary to left ovarian cyst discussed expectant management versus removal, plan laparoscopic ovarian cystectomy possible oophorectomy and sterilization salpingectomy at same time. recommend US and CA125 first. (2) Ovarian cyst, left Status: Acute Comment: likely secondary to left ovarian cyst discussed expectant management versus removal, plan laparoscopic ovarian cystectomy possible oophorectomy and sterilization salpingectomy at same time. recommend US and CA125 first. (3) Abdominal pain Status: Acute Qualifiers: Abdominal location: left lower quadrant Qualified Code(s): R10.32 - Left lower quadrant pain Report of Operation Date of Procedure: 03/01/18 Pre-Operative Diagnosis: ovarian cyst pelvic pain Post-Operative Diagnosis: same Surgery/Procedure Performed:: left salpingoophorectomy right salpingectomy cw Description of Surgical Findings:: left sigmoid to pelvic side wall adhesion enlarged left ovary in cul de sac with increased blood flow, right rudimentary ovary, therapeutic recreation specialist: Jonathan Edouard Type of Anesthesia:: General Specimen's removed: left tube ovary right tyube Drains: benson Estimated Blood Loss (mL): minimal Fluids Replaced: crystalloid Description of Procedure: Patient was taken in the operating room and was placed under general anesthesia was prepped and draped in normal sterile fashion in the dorsal lithotomy position. Bladder was drained of clear urine and SCDs were on preoperatively. Uterus was sounded and a uterine manipulator was placed after dilating. Attention was then paid to the abdominal portion of the procedure and the umbilicus was elevated with towel clamps and injected with Marcaine and after a 12 mm incision was made and the Veress needle was entered into the abdomen confirmed to be intra-abdominal with a low opening pressure of less than 5 mmHg. Abdomen was insufflated with CO2 gas and a 12 mm optical trocar was placed under direct visualization. A left lower quadrant 5 mm port and a 5 mm port suprapubically replaced under direct visualization. Uterus was well visualized and the left ovary was noted to be signficiantly enlarged with increased blood flow and noted to be cystic in appearance. washings were taken and due to the ovary being located right where the patient's chronic pain was, it was decided to remove this by transecting across the IP ligament down through the mesosalpinx and the uteroovarian ligament. then the right fallopian tube identified and was elevated and transecting across the mesosalpinx and the attachment to the uterine corpus bilaterally the tubes were removed without complication. Excellent hemostasis was noted. specimens were removed through the umbilical site after enlarging it with a bag and richard. umbilical port site closed directly with 0 vicryl. Liver and upper abdomen were visualized notably within normal limits and no other gross abnormalities were seen in the abdomen. All instruments removed from the abdomen after gas was desufflated. Port sites were closed with 3-0 Monocryl Steri's and op sites were applied. All instruments removed from the vagina and patient was awoken and taken recovery in stable condition. Grafts/Implants Used: none - Complications none
[2018-03-01] MEDS: HYDROcodone Bitartrate/Apap 5/325 Tablet PO (15:15)
[2018-03-13 09:11] LABS: Cytology, Body Fluid / CSF SEE PATHOLOGY REPORT
== END 2018-03-01 16:00 | disposition home or self-care (01) ==
LOC: SDC 10:04 → AC 10:04
PROVIDERS: Family Provider Family Medicine; PCP Family Medicine; Visit Provider Obstetrics & Gynecology
PROC: (CPT 58661; principal; 2018-03-01 11:15)
DX: N83.12 Corpus luteum cyst of left ovary (principal); N83.02 Follicular cyst of left ovary; L30.4 Erythema intertrigo; N94.19 Other specified dyspareunia; E28.2 Polycystic ovarian syndrome; R74.8 Abnormal levels of other serum enzymes; R91.1 Solitary pulmonary nodule; I10 Essential (primary) hypertension; Z79.899 Other long term (current) drug therapy; Z87.19 Personal history of other diseases of the digestive system; Z90.49 Acquired absence of other specified parts of digestive tract
CPT/HCPCS: 58661; 36415; 81025; 85027; 86850; 86900; 88108; 88305; 88313; J7120; J2405

== ENCOUNTER → 2018-04-02 10:41 | Outpatient (CLI) | payer BC, SELFPAY ==
[2018-04-02 11:46] LABS: Estradiol 13.3 pg/mL; Follicle Stimulating Hormone 93.7 mIU/mL
== END ==
PROVIDERS: Family Provider Family Medicine; PCP Family Medicine; Visit Provider Obstetrics & Gynecology
DX: E28.39 Other primary ovarian failure (principal)
CPT/HCPCS: 36415; 82670; 83001

== ENCOUNTER → 2018-06-07 17:53 | Outpatient (CLI) | payer BC, SELFPAY ==
--- NOTE | 2018-06-07 18:00 | RAD_ITS ---
STUDY: X-RAY CHEST REASON FOR EXAM: Female, 38 years old. Dysphagia, right upper lobe pain TECHNIQUE: Frontal and lateral views COMPARISON: January 18, 2010 FINDINGS: The lungs are clear and expanded. There is no demonstrated pleural abnormality. Normal size heart. Normal mediastinum and ifnn. Normal visualized pulmonary arteries. Normal visualized aortic arch and descending thoracic aorta. Normal visualized thoracic spine. Normal visualized ribs, clavicles, and shoulders. There is no demonstrated abnormality of the visualized soft tissue structures of the upper abdomen. RAD/Chest PA and Lateral IMPRESSION: Normal x-ray examination of the chest. Electronically Signed: Supa Miller DO at 23:55 EDT Tel [phone], Service support ,
[2018-06-07 18:47] LABS: Anion Gap 8 (5-15); BUN 15 mg/dL (7-18); BUN/Creat Ratio 12.8 RATIO (10-20); Calcium,Total 9.7 mg/dL (8.5-10.1); Chloride 104 mmol/L (98-107); Creatinine, Serum 1.17 mg/dL (0.55-1.02); EST Glomerular Filtration Rate 55 mL/min (>60); Est Glom Filt Rate - Afr Amer 66 mL/min (>60); Glucose 94 mg/dL (74-106); Sodium Level 139 mmol/L (136-145)
== END ==
PROVIDERS: Family Provider Family Medicine; PCP Family Medicine; Visit Provider Family Medicine
DX: R94.4 Abnormal results of kidney function studies (principal)
CPT/HCPCS: 71046; 80048

== ENCOUNTER → 2018-09-03 17:02 | Outpatient (CLI) | payer BC, SELFPAY ==
[2018-03-20 09:20] VITALS: BMI 30.9
[2018-09-03 18:04] LABS: Anion Gap 8 (5-15); BUN 20 mg/dL (7-18); BUN/Creat Ratio 14.6 RATIO (10-20); Calcium,Total 9.1 mg/dL (8.5-10.1); Chloride 106 mmol/L (98-107); Creatinine, Serum 1.37 mg/dL (0.55-1.02); EST Glomerular Filtration Rate 46 mL/min (>60); Est Glom Filt Rate - Afr Amer 55 mL/min (>60); Glucose 81 mg/dL (74-106); Potassium 3.9 mmol/L (3.5-5.1); Sodium Level 143 mmol/L (136-145)
--- OUTSIDE RECORDS SUMMARY | 2018-12-06 09:40 | XMS RPT_ITS ---
:1980 Author Organization OHIP Support Name Relationship Address Phone ASHUNI Unavailable [address] + [place] [address] PLANK, NIRANJAN Unavailable [address] + [place] [id number] ASHUNI Unavailable [address] + [place] [address] PLANK, NIRANJAN Unavailable [address] + [place] [address] ASHUNI Unavailable [address] + [place] [address] PLANK, NIRANJAN Unavailable [address] + [place] [address] ASHUNI Unavailable [address] + [place] [address] PLANK, NIRANJAN Unavailable [address] + [place] [address] ASHUNI Unavailable [address] + [place] [address] PLANK, NIRANJAN Unavailable [address] + [place] [address] [address] GIVEN [place] [address] SAMMAMISHUNI Unavailable [address] + [place] [address] PLANK, NIRANJAN Unavailable [address] + [place] [address] [employer] Unavailable [address] + [place] [address] PLANK, NIRANJAN Unavailable [address] + [place] [address] [employer] Unavailable [address] + [place] [address] PLANK, NIRANJAN Unavailable [address] + [place] [address] [employer] Unavailable [address] + [place] [address] PLANK, NIRANJAN Unavailable [address] + [place] [address] [employer] Unavailable [address] + [place] [address] PLANK, NIRANJAN Unavailable [address] + [place] [address] [employer] Unavailable [address] + [place] [address] PLANK, NIRANJAN Unavailable [address] + [place] [address] [employer] Unavailable [address] + [place] [address] PLANK, NIRANJAN Unavailable [address] + [place] [address] [employer] Unavailable [address] + [place] [address] PLANK, NIRANJAN Unavailable [address] + [place] [address] [employer] Unavailable [address] + [place] [address] PLANK, NIRANJAN Unavailable [address] + [place] [address] [employer] Unavailable [address] + [place] [address] PLANK, NIRANJAN Unavailable [address] + [place] [address] [employer] Unavailable [address] + [place] [address] PLANK, NIRANJAN Unavailable [address] + [place] [address] [employer] Unavailable [address] + [place] [address] PLANK, NIRANJAN Unavailable [address] + [place] [address] [employer] Unavailable [address] + [place] [address] PLANK, NIRANJAN Unavailable [address] + [place] [address] [employer] Unavailable [address] + [place] [address] PLANK, NIRANJAN Unavailable [address] + [place] [address] [employer] Unavailable [address] + [place] [address] PLANK, NIRANJAN Unavailable [address] + [place] [address] ASHUNI Unavailable [address] [place] [address] AVE + [place] [address] PLANK, NIRANJAN Unavailable [address] + [place] [address] Care Team Providers Name Role Phone Dom, Dr. Jeromy Gerard Admitting Unavailable Dom, Dr. Jeromy Gerard Attending Unavailable NewbillHorace Admitting Unavailable NewbillHorace Attending Unavailable [facility] Primary Care Unavailable Newbill, Horace Mello Admitting Unavailable NewbillHorace Attending Unavailable [facility] Primary Care Unavailable RanneyErnestoer Attending Unavailable Ranney, Christopher Referring Unavailable Ranney, Christopher Primary Care Unavailable Ranjana Baca Attending Unavailable Ranney, Christopher Primary Care Unavailable Ranney, Christjayjayer Attending Unavailable Ranney, Christopher Referring Unavailable Ranney, Christopher Primary Care Unavailable Bruce, Scot Attending Unavailable Bruce, Scot Referring Unavailable Ranney, Christopher Primary Care Unavailable BruceMayira Attending Unavailable Bruce, Scot Referring Unavailable Ranney, Christopher Primary Care Unavailable Stepan Corona Attending Unavailable Ranney, Christopher Referring Unavailable Ranney, Christopher Primary Care Unavailable Stepan Corona Attending Unavailable Stepan Corona Referring Unavailable Ranney, Christopher Primary Care Unavailable Stepan Corona Attending Unavailable Stepan Corona Referring Unavailable Ranney, Christopher Primary Care Unavailable Stepan Corona Consulting Unavailable Ranney, Christopher Primary Care Unavailable Jayce Thorpe Attending Unavailable Birgit Covarrubias Attending Unavailable Ranney, Christopher Referring Unavailable Ranney, Christopher Primary Care Unavailable Stepan Corona Attending Unavailable Ranney, Christopher Referring Unavailable Birgit Covarrubias Attending Unavailable Ranney, Christopher Primary Care Unavailable Marcanthony, Birgit Attending Unavailable Marcanthony, Birgit Referring Unavailable Ranney, [facility] Unavailable Mateus Loya Attending Unavailable Calabretta Stepan Referring Unavailable FranklintonKiya Attending Unavailable Kaylin, Kiya Referring Unavailable Ranney, [facility] Primary Care Unavailable Kaylin, Kiya Attending Unavailable [facility] Unavailable Marcanthony, Birgit Attending Unavailable Marcanthony, Birgit Referring Unavailable Ransanta maria, [facility] Primary Care Unavailable Marcanthony, Birgit Attending Unavailable Marcanthony, Birgit Referring Unavailable Ranney, [facility] Primary Care Unavailable Marcanthony, Birgit Consulting Unavailable Marcanthony, Birgit Attending Unavailable Ransanta maria, Christopher Referring Unavailable Ransanta maria, [facility] Unavailable Marcanthony, Birgit Attending Unavailable Marcanthony, Birgit Referring Unavailable Ransanta maria, [facility] Unavailable Oc Acosta Attending Unavailable SchinnerOc Referring Unavailable [facility], [place] Primary Care Unavailable PROBLEMS PROBLEMS DATE TYPE CONDITION / CODE ATTENDING STATUS SOURCE 03/20/2018 Unknown E28.39 - Other Marcanthony, 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 / Hospital E28.39(ICD-10) Repository 03/01/2018 Unknown G89.18 - Other acute Marcanthony, Active [facility] postprocedural pain Birgit Community / G89.18(ICD-10) Hospital Repository 03/14/2018 Unknown N83.209 - FranklintonKiya damon Active Deepika Unspecified ovarian Community cyst, unspecified Hospital side / Repository N83.209(ICD-10) 02/07/2018 Unknown N83.202 - Marcanthony, Active [facility] Unspecified ovarian Birgit Community cyst, left side / Hospital N83.202(ICD-10) Repository 01/12/2018 Unknown K80.50 - Calculus of Calabretta, Active [facility]ika bile duct without Stepan Community cholangitis or Hospital cholecystitis Repository without obstruction / K80.50(ICD-10) 02/16/2018 Unknown I10 - Essential Mateus Loya Active [facility] (primary) Community hypertension / Hospital I10(ICD-10) Repository 05/16/2018 Unknown R10.9 - Unspecified Ranjana Baca Active [facility] abdominal pain / Community R10.9(ICD-10) Hospital Repository PROCEDURES PROCEDURES No Procedure Records FoundRESULTS RESULTS PROTEIN, URINE 24HR Collected: 09/21/2018 Status: F Source: [place] 11:[address] [facility] REPOSITORY TYPE CODE TESTS RESULT OUT OF RANGE REFERENCE UNITS LAB L501.1850 24.0 HOURS 24.0 Normal UR COLLECT TIME LAB L501.1875 mL 1875 Normal UR TOTAL VOLUME LAB L501.1900 <11.9 mg/dL < 6.0 Normal URINE PROTEIN LAB L501.1925 <150 MG/24HR mg/24HR Test Normal 24hr UR not performed PROTEIN Performed By: #### L500.9000, L502.000 #### [facility] [address] [facility] [place], [place], [id number] 24 HR URINE CREATININE Collected: 09/21/2018 Status: F Source: [place] 11:[address] [facility] REPOSITORY TYPE CODE TESTS RESULT OUT OF RANGE REFERENCE UNITS LAB L502.0100 24.0 HOURS Normal UR COLLECT 24.0 TIME LAB L502.0200 L Normal UR TOTAL 1.88 VOLUME LAB L502.0300 NO RANGE EST. mg/dL Normal URINE CREAT 77.00 LAB L502.0400 0.70-1.90 g/24 HR Normal UR.CREAT/24hr 1.45 Performed By: #### L500.9000, L502.000 #### [facility] [address] [facility] [place], [place], [address] PROTHROMBIN TIME W/INR Collected: 09/20/2018 Status: F Source: [place] 10:[address] [facility] REPOSITORY TYPE CODE TESTS RESULT OUT OF RANGE REFERENCE UNITS LAB L300.4150 11.7-14.9 SECONDS Normal PROTIME 12.6 LAB L300.4200 Normal INR 0.9 Performed By: #### L300.3900, L300.4310 #### [facility] [facility] [place], [address] PARTIAL THROMBOPLAST Collected: 09/20/2018 Status: F Source: [place] TIME 10:[address] [facility] REPOSITORY TYPE CODE TESTS RESULT OUT OF RANGE REFERENCE UNITS LAB L300.4310 24.1-36.2 Seconds Normal PTT 26.9 Performed By: #### L300.3900, L300.4310 #### [facility] [address] [place], [place], [id number] CBC W/DIFF, AUTOMATED Collected: 09/20/2018 Status: F Source: [place] 10:[address] [facility] REPOSITORY TYPE CODE TESTS RESULT OUT OF RANGE REFERENCE UNITS LAB L100.1000 4.4-11.0 K/mm3 Normal WBC 9.3 LAB L100.1200 4.2-5.4 M/mm3 Normal RBC 5.22 LAB L100.1300 12.0-15.0 g/dl Normal HGB 14.5 LAB L100.1400 37-47 % Normal HCT 44.7 LAB L100.1500 81-99 fL Normal MCV 85.6 LAB L100.1600 27.0-32.0 pg Normal MCH 27.8 LAB L100.1700 32-36 g/gl Normal MCHC 32.4 LAB L100.1810 11.6-14.6 % Normal RDW CV 14.6 LAB L100.1820 35.1-43.9 fl High RDW SD 46.0 LAB L100.1900 150-450 K/mm3 Normal PLT 264 LAB L100.2000 6.2-12.0 fl Normal MPV 10.7 LAB L100.2100 47-70 % Normal NEUT% 56.4 LAB L100.2200 19-41 % Normal LY% 32.3 LAB L100.2300 0-10 % Normal MONO% 6.8 LAB L100.2400 0-5 % Normal EO% 3.1 LAB L100.2500 0-1 % High BASO% 1.1 LAB L100.2550 0.0-0.9 % Normal IM GRAN % 0.300 Result Comment: IG% - Immature Granulocytes (promyelocytes, myelocytes and metamyelocytes) > 1% indicates that a LEFT SHIFT is Present. LAB L100.2620 2.0-7.7 X10 3/uL Normal Absolute Neut 5.3 LAB L100.2720 0.83-4.51 X10 3/ul Normal Absolute Lymph 3.01 Performed By: #### L100.0100 #### [facility] [address] [place], [place], [id number] BUN Collected: 09/20/2018 Status: F Source: [place] 10:[address] [facility] REPOSITORY TYPE CODE TESTS RESULT OUT OF RANGE REFERENCE UNITS LAB L501.1000 7-18 mg/dL Normal BUN 14 Performed By: #### L501.1000, L501.1105, L501.1400, L501.2200, L501.2300, L501.5294 #### [facility] [address] [place], [place], [id number] SERUM CREATININE AND Collected: 09/20/2018 Status: F Source: [place] GFR 10:[address] [facility] REPOSITORY TYPE CODE TESTS RESULT OUT OF RANGE REFERENCE UNITS LAB L501.1100 0.55-1.02 mg/dL High 1.08 CREAT,SERUM Result Comment: The validity of the calculated GFR AND GFRAA in patients over 70 years has not been determined. Clinical correlation is essential. LAB L501.1110 >60 mL/min Normal EST GFR 60 Result Comment: Non- GFR Calc LAB L501.1115 >60 mL/min Normal EST GFR - AA 73 Result Comment: GFR Calc Performed By: #### L501.1000, L501.1105, L501.1400, L501.2200, L501.2300, L501.5294 #### [facility] [address] [place], [place], [id number] URIC ACID Collected: 09/20/2018 Status: F Source: [place] 10:[address] [facility] REPOSITORY TYPE CODE TESTS RESULT OUT OF RANGE REFERENCE UNITS LAB L501.1400 2.6-6.0 mg/dL High URIC 6.1 Result Comment: The drugs N-Acetylcysteine and Metamizole may falsely depress this assay. Performed By: #### L501.1000, L501.1105, L501.1400, L501.2200, L501.2300, L501.5294 #### [facility] [address] [place], [place], [id number] CALCIUM,TOTAL Collected: 09/20/2018 Status: F Source: [place] 10:[address] [facility] REPOSITORY TYPE CODE TESTS RESULT OUT OF RANGE REFERENCE UNITS LAB L501.2200 8.5-10.1 mg/dL Normal CA 9.3 Performed By: #### L501.1000, L501.1105, L501.1400, L501.2200, L501.2300, L501.5294 #### [facility] [address] [place], [address] PHOSPHORUS Collected: 09/20/2018 Status: F Source: [place] 10:[address] [facility] REPOSITORY TYPE CODE TESTS RESULT OUT OF RANGE REFERENCE UNITS LAB L501.2300 2.5-4.9 mg/dL Normal PHOS 2.8 Performed By: #### L501.1000, L501.1105, L501.1400, L501.2200, L501.2300, L501.5294 #### [facility] [address] [place], [place], [id number] ELECTROLYTE PANEL Collected: 09/20/2018 Status: F Source: [place] 10:[address] [facility] REPOSITORY TYPE CODE TESTS RESULT OUT OF RANGE REFERENCE UNITS LAB L501.5300 136-145 mmol/L Normal NA 140 LAB L501.5600 3.5-5.1 mmol/L Normal K 4.2 LAB L501.5900 98-107 mmol/L Normal CL 103 LAB L501.6100 21.0-32.0 mmol/L Normal CO2 27.0 LAB L501.6200 5-15 Normal GAP 10 Performed By: #### L501.1000, L501.1105, L501.1400, L501.2200, L501.2300, L501.5294 #### [facility] [address] [place], [place], [id number] URINALYSIS, ROUTINE Collected: 09/20/2018 Status: F Source: [place] (DIPSTICK) 10:[address] [facility] REPOSITORY Order Comment: How was Urine Obtained? CLEAN CATCH TYPE CODE TESTS RESULT OUT OF RANGE REFERENCE UNITS LAB L400.3000 Yellow COLOR Normal Yellow LAB L400.3050 Clear Normal CLARITY Clear LAB L400.3200 Normal mg/dl Normal GLUCOSE, UR Normal LAB L400.3300 Negative mg/dL Normal BILIRUBIN URINE Negative LAB L400.3400 Negative mg/dl Normal KETONE UR Negative LAB L400.3465 1.002-1.030 Normal SP.GR. DIPSTX 1.015 LAB L400.3550 5.0 - 8.0 pH UR Normal 6.5 LAB L400.3600 Negative mg/dl PROT Normal DIPSTX Negative LAB L400.3700 Normal mg/dl Normal UROBILI Normal LAB L400.3750 Negative Normal NITRITE UR Negative LAB L400.3780 Negative /ul Normal OCCULT BLOOD-UR Negative LAB L400.3800 Negative /ul LEUK Normal ESTERASE Negative Performed By: #### L400.2010 #### [facility] [address] [facility] [place], [address] PROTEIN+CREATININE Collected: Status: F Source: [place] RATIO,URINE 09/20/2018 10:[address] [facility] REPOSITORY TYPE CODE TESTS RESULT OUT OF RANGE REFERENCE UNITS LAB L501.1200 NO RANGE EST. mg/dL Normal UR CREAT 78.50 LAB L501.1930 <11.9 mg/dL Normal < 6.0 PROTEIN,UR.R AN. LAB L501.1940 0-200 mg/g CRE Normal PROT:CRE 70 RATIO Performed By: #### L501.0900 #### [facility] [address] [place], [address] SANDER + PROTEIN ELECT, Collected: 09/20/2018 Status: F Source: [place] SERUM 10:[address] [facility] REPOSITORY Order Comment: Is Patient Fasting? Y TYPE CODE TESTS RESULT OUT OF RANGE REFERENCE UNITS LAB L3100.3500 6.0-8.5 g/dL Normal PROTEIN,TOTAL 7.3 LAB L3200.4031 894-2580 mg/dL Normal IMMUNO G 952 LAB L3200.1400 87-352 mg/dL Low IMMUNO A 83 LAB L3200.1500 26-217 mg/dL Normal IMMUNOGL M 59 LAB L3200.1510 2.9-4.4 g/dL Normal ALBUMIN 4.3 LAB L3200.1520 0.0-0.4 g/dL Normal BPJXQ-2-KUTD 0.2 LAB L3200.1530 0.4-1.0 g/dL Normal NOMVN-5-YDNC 0.7 LAB L3200.1540 0.7-1.3 g/dL Normal BETA GLOBULIN 1.1 LAB L3200.1550 0.4-1.8 g/dL Normal GAMMA GLOBULIN 1.0 LAB L3200.1560 Normal M-SPIKE Result Comment: Not Observed LAB L3200.1570 2.2-3.9 g/dL Normal GLOBULIN, TOTAL 3.0 LAB L3200.1580 0.7-1.7 A/G Normal RATIO 1.5 LAB L3200.1590 . SANDER Normal RESULT,S Comment Result Comment: No monoclonality detected. LAB L3200.1594 . Normal NOTE: Comment Result Comment: Protein electrophoresis scan will follow via computer, mail, or furniture painter delivery. Performed By: #### L3100.3425, L3100.5600, L3100.5700, L3100.5800, L3300.1200, L3600.4030 #### [facility] (refer to report for specific site) refer to report for address and phone number COMPLEMENT CH50 Collected: 09/20/2018 Status: F Source: [place] 10:[address] [facility] REPOSITORY Order Comment: Is Patient Fasting? Y TYPE CODE TESTS RESULT OUT OF RANGE REFERENCE UNITS LAB L3100.5600 >41 U/mL Normal COMP CH50 > 60 Result Comment: Performed at: [facility] [address] [id number] Aeronautical Project Engineer: Srinivas Kam PhD, Phone: [phone] Performed By: #### L3100.3425, L3100.5600, L3100.5700, L3100.5800, L3300.1200, L3600.4030 #### [facility] (refer to report for specific site) refer to report for address and phone number COMPLEMENT C3 Collected: 09/20/2018 Status: F Source: [place] 10:[address] [facility] REPOSITORY Order Comment: Is Patient Fasting? Y TYPE CODE TESTS RESULT OUT OF RANGE REFERENCE UNITS LAB L3100.5700 82-167 mg/dL Normal COMP C3 140 Performed By: #### L3100.3425, L3100.5600, L3100.5700, L3100.5800, L3300.1200, L3600.4030 #### [facility] (refer to report for specific site) refer to report for address and phone number COMPLEMENT C4 Collected: 09/20/2018 Status: F Source: [place] 10:[address] [facility] REPOSITORY Order Comment: Is Patient Fasting? Y TYPE CODE TESTS RESULT OUT OF RANGE REFERENCE UNITS LAB L3100.5800 14-44 mg/dL High COMP C4 45 Performed By: #### L3100.3425, L3100.5600, L3100.5700, L3100.5800, L3300.1200, L3600.4030 #### [facility] (refer to report for specific site) refer to report for address and phone number ANCA Collected: 09/20/2018 Status: F Source: [place] 10:[address] [facility] REPOSITORY Order Comment: Is Patient Fasting? Y TYPE CODE TESTS RESULT OUT OF RANGE REFERENCE UNITS LAB L3300.1225 Neg:<1:20 titer CYTOPLASMIC Normal Ab <1:20 LAB L3300.1250 Neg:<1:20 titer PERINUCLEAR Normal Ab <1:20 Result Comment: The presence of positive fluorescence exhibiting P-ANCA or C-ANCA patterns alone is not specific for the diagnosis of Meagan's Granulomatosis (WG) or microscopic polyangiitis. Decisions about treatment should not be based solely on ANCA IFA results. The [employer] ANCA [employer] Consensus recommends follow up testing of positive sera with both OH- 3 and MPO-ANCA enzyme immunoassays. As many as 5% serum samples are positive only by EIA. Ref. AM J Clin Pathol 1999;111:507-513. LAB L3300.1285 Neg:<1:20 titer Normal Atypical pANCA <1:20 Result Comment: The atypical pANCA pattern has been observed in a significant percentage of patients with ulcerative colitis, primary sclerosing cholangitis and autoimmune hepatitis. Performed By: #### L3100.3425, L3100.5600, L3100.5700, L3100.5800, L3300.1200, L3600.4030 #### [facility] (refer to report for specific site) refer to report for address and phone number IMMUNOFIXATION URINE Collected: 09/20/2018 Status: F Source: [place] 10:[address] [facility] REPOSITORY Order Comment: Is Patient Fasting? Y TYPE CODE TESTS RESULT OUT OF RANGE REFERENCE UNITS LAB L3600.4030 . Normal SANDER Urine Comment Result Comment: No monoclonality detected. Performed By: #### L3100.3425, L3100.5600, L3100.5700, L3100.5800, L3300.1200, L3600.4030 #### [facility] (refer to report for specific site) refer to report for address and phone number RENAL ARTERY DUPLEX Observed: 09/07/2018 Status: F Source: [place] 5:[address] [facility] REPOSITORY [facility] Cardiovascular Services [address] [place] [address] Renal Artery Duplex Ultrasound 09/07/18 1124 MR#: [id number] Acct: [id number] Name: CONNOR VALLADARES Rep #: [id number] : 1980 38 From: Ellis Keenan MD Attending Dr: Wetson Henry MD Status: REG CLI Ordering Dr: Isreal Henry MD Date: 09/07/18 Location: US Sex: F C Admitted: Reason For Study: Renal Insufficiency Right Renal Artery Left Renal Artery Right renal artery ostium 124/32 Left renal artery ostium 110/26 RSV/EDV. PSV/EDV. Right renal artery proximal 110/31 Left renal artery proximal PSV/EDV PSV/EDV. 111/33 . Right renal artery mid 130/41 Left renal artery mid 94/35 PSV/EDV. PSV/EDV . Right renal artery distal 90/24 Left renal artery distal 101/40 PSV/EDV. PSV/EDV. Right Renal Parenchyma Left Renal Parenchyma Upper Pole Medula 26/10 PSV/EDV. Left upper pole medulla 32/13 Right upper pole medulla EDR 0.38 . PSV/EDV . Right upper pole medulla R.I. Left upper pole medulla EDR 0.41 . 0.61 . Left upper pole medulla R.I. 0.60 . Upper Cristofer Cortx 14/5 PSV/EDV. UP Cortex 23/11 PSV/EDV. Right upper pole cortex EDR 0.36 . Left upper pole cortex EDR 0.48 . Right upper pole cortex R.I. 0.61 . Left upper pole cortex R.I. 0.53 . Right lower Pole medulla 17/6 Left lower Pole medulla 23/10 PSV/EDV . PSV/EDV . Right lower pole medulla EDR 0.35 . Left lower pole medulla EDR 0.43 . Right lower pole medulla R.I. Left lower pole medulla R.I. 0.56 . 0.63 . Lower Pole Cortx 13/7 PSV/EDV. Lower Pole Cortex 22/9 PSV/EDV. Left lower pole cortex EDR 0.54 . Right lower pole cortex EDR 0.41 . Left lower pole cortex R.I. 0.49 . Right lower pole cortex R.I. 0.60 . Left Renal Hilar Right Renal Hilar LT Hilar avg 49/17 PSV/EDV . Right Hilar avg 48/16 PSV/EDV. Left hilar acceleration time 37 Right hilar acceleration time 44 m/sec. m/sec. Left Renal Dimensions Right Renal Dimensions Left kidney size 10.33 cm . Right kidney size 10.37 cm . Left cortical dimension 1.32 cm . Right cortical dimension 1.36 cm . Aorta Proximal abdominal aorta 1.53cm x 1.43 cm . Proximal abdominal aorta peak systolic velocity is 144 cm/sec . Distal abdominal aorta 1.38cm x 1.38 cm . Distal abdominal aorta peak systolic velocity is 128 cm/sec . Interpretation Summary Normal aortic diameter with slightly increased velocity making renal aortic ratios not reliable <60% bilateral renal artery stenosis Normal resistivity indices not suggestive of intrinsic renal parenchymal disease Right kidney length 10.37cm Left kidney length 10.33cm Ordering Physician: Weston Henry Referring Physician: Weston Henry Performed By: Nu Arellano, RAY, RVT 09/07/18 1732 Date Ellis Keenan MD CC: Weston Henry MD Date Dictated: 09/07/18 1124 Date Transcribed: 09/07/18 1732 Hand Scudder: Signed KIDNEY AND BLADDER Observed: 09/07/2018 Status: F Source: [place] 9:[address] [facility] REPOSITORY [facility] Imaging Services [address] [address] Kidney and Bladder MR#: [id number] Acct: [id number] Name: CONNOR VALLADARES Rep #: [id number] : 1980 F 38 From: Ronn Urias MD PCP: Weston Henry MD Status: REG CLI Study: Kidney and Bladder Date of Exam: 09/07/18 Exam# [id number] Ordering Dr: Isreal Henry MD STUDY: RENAL ULTRASOUND - COMPLETE REASON FOR EXAM: Female, 38 years old. Elevated BUN/creatinine TECHNIQUE: Ultrasound evaluation of the kidneys was performed with real-time and static vieira-scale imaging. COMPARISON: None. FINDINGS: RIGHT KIDNEY: Normal location of the right kidney, which is normal in size. The right kidney measures 10.4 x 5.2 x 3.9 cm. There is diffuse thinning of the renal cortex. The renal cortex measures 0.8 cm. There is no right renal mass or cyst. There are no right renal calculi. There is no right hydronephrosis. DISTAL RIGHT URETER: There is non-visualization of the distal right ureter. There is no demonstrated right ureterovesical junction calculus. There is a visualized right ureteral jet. LEFT KIDNEY: Normal location of the left kidney, which is normal in size. The left kidney measures 9.6 x 4.5 x 4.9 cm. There is diffuse thinning of the renal cortex. The renal cortex measures 1.0 cm. There is a simple 1.67 m cyst. There are no left renal calculi. There is no left hydronephrosis. DISTAL LEFT URETER: There is non-visualization of the distal left ureter. There is no demonstrated left ureterovesical junction calculus. There is a visualized left ureteral jet. AORTA: There is no elongation or tortuosity of the abdominal aorta. I.V.C.: The IVC is patent. BLADDER: The bladder is sonographically normal, but incompletely distended US/Kidney and Bladder IMPRESSION: Borderline cortical thinning in both kidneys, no obstructive uropathy or suspicious solid lesion. Simple 1.6 cm left renal cyst Electronically Signed: Dionisio Urias MD at 10:35 EST , Service support , CC: Weston Henry MD Hand Scudder: Signed BASIC METABOLIC Collected: 09/03/2018 Status: F Source: [place] PROFILE (BMP) 5:[address] [facility] REPOSITORY TYPE CODE TESTS RESULT OUT OF RANGE REFERENCE UNITS LAB L501.0100 74-106 mg/dL Normal GLU 81 Result Comment: Please note revised GLUCOSE reference range effective 2017. LAB L501.1000 7-18 mg/dL High BUN 20 LAB L501.1100 0.55-1.02 mg/dL High CREAT,SERUM 1.37 Result Comment: The validity of the calculated GFR AND GFRAA in patients over 70 years has not been determined. Clinical correlation is essential. LAB L501.1110 >60 mL/min Low EST GFR 46 Result Comment: Non- GFR Calc LAB L501.1115 >60 mL/min Low EST GFR - AA 55 Result Comment: GFR Calc LAB L501.1300 10-20 RATIO Normal BUN/CRE 14.6 LAB L501.2200 8.5-10.1 mg/dL CA Normal 9.1 LAB L501.5300 136-145 mmol/L NA Normal 143 LAB L501.5600 3.5-5.1 mmol/L K Normal 3.9 LAB L501.5900 98-107 mmol/L CL Normal 106 LAB L501.6100 21.0-32.0 mmol/L Normal CO2 29.0 LAB L501.6200 5-15 Normal GAP 8 Performed By: #### L500.2500 #### [facility] [place], [address] BASIC METABOLIC Collected: 06/07/2018 Status: F Source: [place] PROFILE (BMP) 6:[address] [facility] REPOSITORY TYPE CODE TESTS RESULT OUT OF RANGE REFERENCE UNITS LAB L501.0100 74-106 mg/dL Normal GLU 94 Result Comment: Please note revised GLUCOSE reference range effective 2017. LAB L501.1000 7-18 mg/dL Normal BUN 15 LAB L501.1100 0.55-1.02 mg/dL High CREAT,SERUM 1.17 Result Comment: The validity of the calculated GFR AND GFRAA in patients over 70 years has not been determined. Clinical correlation is essential. LAB L501.1110 >60 mL/min Low EST GFR 55 Result Comment: Non- GFR Calc LAB L501.1115 >60 mL/min Normal EST GFR - AA 66 Result Comment: GFR Calc LAB L501.1300 10-20 RATIO Normal BUN/CRE 12.8 LAB L501.2200 8.5-10.1 mg/dL CA Normal 9.7 LAB L501.5300 136-145 mmol/L NA Normal 139 LAB L501.5600 3.5-5.1 mmol/L K Normal 4.0 LAB L501.5900 98-107 mmol/L CL Normal 104 LAB L501.6100 21.0-32.0 mmol/L Normal CO2 27.0 LAB L501.6200 5-15 Normal GAP 8 Performed By: #### L500.2500 #### [facility] [address] [facility] [place], [address] CHEST PA AND LATERAL Observed: 06/07/2018 Status: F Source: [place] 6:[address] [facility] REPOSITORY [facility] Imaging Services [address] [place] [address] Chest PA and Lateral MR#: [id number] Acct: [id number] Name: CONNOR VALLADARES Rep #: [id number] : 1980 F 38 From: Supa Miller DO PCP: Weston Henry MD Status: REG CLI Study: Chest PA and Lateral Date of Exam: 06/07/18 Exam# [id number] Ordering Dr: Oc Acosta MD STUDY: X-RAY CHEST REASON FOR EXAM: Female, 38 years old. Dysphagia, right upper lobe pain TECHNIQUE: Frontal and lateral views COMPARISON: January 18, 2010 FINDINGS: The lungs are clear and expanded. There is no demonstrated pleural abnormality. Normal size heart. Normal mediastinum and finn. Normal visualized pulmonary arteries. Normal visualized aortic arch and descending thoracic aorta. Normal visualized thoracic spine. Normal visualized ribs, clavicles, and shoulders. There is no demonstrated abnormality of the visualized soft tissue structures of the upper abdomen. RAD/Chest PA and Lateral IMPRESSION: Normal x-ray examination of the chest. Electronically Signed: Supa Miller DO at 23:55 EDT Tel [phone], Service support , CC: Weston Henry MD; Oc Acosta MD Hand Scudder: Signed Observed: 04/16/2018 Status: F Source: [place] C URINE 1:03 PM [facility] REPOSITORY Final Report: Light growth of Normal skin aung isolated Performed By: #### [id number] #### [facility] Subsection [facility] [place] [address] FOLLICLE STIMULATING Collected: 04/02/2018 Status: F Source: [place] HORMONE 10:[address] [facility] REPOSITORY TYPE CODE TESTS RESULT OUT OF RANGE REFERENCE UNITS LAB L3100.5125 mIU/mL Normal FSH 93.7 Result Comment: NORMAL REFERENCE RANGES FEMALE FOLLICULAR 2.3 - 12.6 mIU/mL MID-CYCLE PEAK 5.2 - 17.5 mIU/mL LUTEAL 1.7 - 12.9 mIU/mL POST-MENOPAUSAL ON MHT 5.9 - 72.8 mIU/mL NOT ON MHT 12.7 - 132.2 mlU/mL MALE 0.7 - 10.8 mIU/mL NEW TEST METHOD AND REFERENCE RANGES FEBRUARY 06, 2012 Performed By: #### L3100.5125, L3300.1750 #### [facility] [address] [place], [address] ESTRADIOL Collected: 04/02/2018 Status: F Source: [place] 10:[address] [facility] REPOSITORY TYPE CODE TESTS RESULT OUT OF RANGE REFERENCE UNITS LAB L3300.1750 pg/mL Normal ESTRADIOL 13.3 Result Comment: NORMAL REFERENCE RANGES FEMALE FOLLICULAR 21.4 - 164.8 pg/mL MID-CYCLE PEAK 49.9 - 367.2 pg/mL LUTEAL 40.2 - 259.0 pg/mL POST-MENOPAUSAL ON MHT <11.0 - 462.1 pg/mL NOT ON MHT <11.0 - 58.3 pg/mL MALE <11.0 - 52.5 pg/mL NOTE: [facility] HAS CONFIRMED THE DRUG FULVETRANT (FASLODEX) MAY CAUSE FALSELY ELEVATED ESTRADIOL RESULTS WHEN USING THIS TEST METHOD. IF PATIENT IS TAKING FULVESTRANT AN ALTERNATIVE METHOD SHOULD BE USED TO DETERMINE ESTRADIOL CONCENTRATION. Performed By: #### L3100.5125, L3300.1750 #### [facility] [address] [place], [address] KEG RAISER OFFICE VISIT Observed: 03/20/2018 Status: F Source: [place] REPORT 9:[address] [facility] REPOSITORY [facility] [address] [place] [place] [address] OFFICE VISIT Date of Service: 03/20/18 MR#: [id number] Acct: [id number] Name: CONNOR VALLADARES Rep #: [id number] : 1980 Provider: Birgit Covarrubias MD Age/Sex: 38/F [place] [facility]: Signed Intake Vital Signs03/20/18 Height 5 ft 5 in 03/20/18 Weight: 186 lb 03/20/18 Body Mass Index (BMI) 30.9 03/20/18 Blood Pressure 115/82 Intake Visit Reasons: 2 week post op Is patient in pain?: No Allergies latex Allergy (Unknown, Verified 03/20/18 09:20) Unknown Sulfa (Sulfonamide Antibiotics) Allergy (Verified 03/20/18 09:20) Hives Medications cholecalciferol (vitamin D3) 2,000 unit capsule 2,000 unit PO QDAY 01/10/18 [History Confirmed 03/20/18] multivitamin tablet 1 tab PO QDAY 01/10/18 [History Confirmed 03/20/18] omega 1-qxq-iqe-fish oil 900 mg-1,400 mg capsule,delayed release 1 cap PO DAILY 01/10/18 [History Confirmed 03/20/18] lisinopril 20 mg tablet 20 mg PO BID 01/22/18 [History Confirmed 03/20/18] Amlodipine [Norvasc] 5 mg PO DAILY 02/22/18 [History Confirmed 03/20/18] Naproxen [Naprosyn] 250 - 500 mg PO Q8H PRN PRN #30 tab 03/01/18 [Rx Confirmed 03/20/18] Is last menstrual period known: No Post menopausal: No Patient : No : No PFSH Medical History Elevated liver enzymes (Acute) Factor V Leiden carrier (Acute) PCOS (polycystic ovarian syndrome) (Acute) Hypertension (Chronic) Abdominal pain (Resolved) Diarrhea (Resolved) Nausea (Resolved) Surgical History History of cholecystectomy (Acute) Status post (Resolved) H/O bilateral salpingectomy (Inactive 02/2018) H/O oophorectomy (Inactive 02/2018) Family History Father Hypertension High cholesterol Cancer Prostate Prostate cancer Social History Smoking Status: Never smoker second hand exposure: No alcohol intake: current alcohol intake frequency: a few times a month details: social substance use type: does not use caffeine: Yes what type of physical activity do you participate in: walking, running, weight training frequency: 3-4 times per week seatbelt use: always do you feel safe at home: Yes 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 DateName GA/Weeks Outcome Route Bth WeighInfant GeLabor LgtAnesthesiDel LocatProvider FOB t n h a n ROS Const Constitutional: Reports system reviewed and no additional complaints, except as docu GI GI: Denies abdominal pain, nausea, vomiting or cramping : Reports hot flashes Exam Const General: cooperative, healthy appearing, comfortable, no acute distress GI Inspection: normal to inspection Palpation: soft, nontender Other: Incisions: C/D/I Assessment AND Plan Problems 1. Dyspareunia due to medical condition in female N94.19 likely secondary to left ovarian cyst discussed expectant management versus removal, plan laparoscopic ovarian cystectomy possible oophorectomy and sterilization salpingectomy at same time. recommend US and CA125 first. 2. Postop check Z09 Plan check fsh and estradiol consider celexa or HRT if needed for symptoms Orders Orders: Coding Level of Care Code No Charge Diagnoses Dyspareunia due to medical condition in female N94.19 Postop check Z09 03/20/18 0949 <Electronically signed by Birgit Covarrubias MD> Date Birgit Covarrubias MD Cosign Signature: Date (if applicable) CC: DOWNTIME REPORT Observed: 03/08/2018 Status: F Source: [place] 12:[address] [facility] Medical Records Department [address] [place] [address] [place] [address] Downtime Report MR#: [id number] Acct: [id number] Name: CONNOR VALLADARES Rep #: [id number] : 1980 38 From: Alex Monzon PCP: Weston Henry MD Status: REG CLI This patient was seen during an EMR downtime February 19, 2018 - February 26, 2018. This patient may have a combination of paper and electronic documentation or all paper documentation. All documentation is viewable within the e-chart portion of [employer] for each patient visit. OPERATIVE REPORT Observed: 03/03/2018 Status: F Source: [place] 2:[address] [facility] Medical Records Department [address] [place] [address] Operative Report 03/01/18 1351 MR#: [id number] Acct: [id number] Name: CONNOR VALLADARES Rep #: [id number] : 1980 38 From: Birgit Covarrubias MD PCP: Weston Henry MD Status: DEP [facility] Y Location: [facility] Problem List (1) Dyspareunia due to medical condition in female Status: Acute Comment: likely secondary to left ovarian cyst discussed expectant management versus removal, plan laparoscopic ovarian cystectomy possible oophorectomy and sterilization salpingectomy at same time. recommend US and CA125 first. (2) Ovarian cyst, left Status: Acute Comment: likely secondary to left ovarian cyst discussed expectant management versus removal, plan laparoscopic ovarian cystectomy possible oophorectomy and sterilization salpingectomy at same time. recommend US and CA125 first. (3) Abdominal pain Status: Acute Qualifiers: Abdominal location: left lower quadrant Qualified Code(s): R10.32 - Left lower quadrant pain Report of Operation Date of Procedure: 03/01/18 Pre-Operative Diagnosis: ovarian cyst pelvic pain Post-Operative Diagnosis: same Surgery/Procedure Performed:: left salpingoophorectomy right salpingectomy cw Description of Surgical Findings:: left sigmoid to pelvic side wall adhesion enlarged left ovary in cul de sac with increased blood flow, right rudimentary ovary, double ending machine operator: Jonathan Edouard Type of Anesthesia:: General Specimen's removed: left tube ovary right tyube Drains: benson Estimated Blood Loss (mL): minimal Fluids Replaced: crystalloid Description of Procedure: Patient was taken in the operating room and was placed under general anesthesia was prepped and draped in normal sterile fashion in the dorsal lithotomy position. Bladder was drained of clear urine and SCDs were on preoperatively. Uterus was sounded and a uterine manipulator was placed after dilating. Attention was then paid to the abdominal portion of the procedure and the umbilicus was elevated with towel clamps and injected with Marcaine and after a 12 mm incision was made and the Veress needle was entered into the abdomen confirmed to be intra-abdominal with a low opening pressure of less than 5 mmHg. Abdomen was insufflated with CO2 gas and a 12 mm optical trocar was placed under direct visualization. A left lower quadrant 5 mm port and a 5 mm port suprapubically replaced under direct visualization. Uterus was well visualized and the left ovary was noted to be signficiantly enlarged with increased blood flow and noted to be cystic in appearance. washings were taken and due to the ovary being located right where the patient's chronic pain was, it was decided to remove this by transecting across the IP ligament down through the mesosalpinx and the uteroovarian ligament. then the right fallopian tube identified and was elevated and transecting across the mesosalpinx and the attachment to the uterine corpus bilaterally the tubes were removed without complication. Excellent hemostasis was noted. specimens were removed through the umbilical site after enlarging it with a bag and richard. umbilical port site closed directly with 0 vicryl. Liver and upper abdomen were visualized notably within normal limits and no other gross abnormalities were seen in the abdomen. All instruments removed from the abdomen after gas was desufflated. Port sites were closed with 3-0 Monocryl Steri's and op sites were applied. All instruments removed from the vagina and patient was awoken and taken recovery in stable condition. Grafts/Implants Used: none - Complications none 03/03/18 0235 <Electronically signed by Birgit Covarrubias MD> Date Birgit Covarrubias MD CC: Weston Henry MD; Birgit Covarrubias MD Signed DISCHARGE INSTRUCTION Observed: 03/01/2018 Status: F Source: [place] 1:[address] [facility] REPOSITORY [facility] Medical Records Department [address] [place] [address] Instructions for Home/Discharge Instructions 03/01/18 1347 MR#: [id number] Acct: [id number] Name: CONNOR VALLADARES Julissa Rep #: [id number] : 1980 38 From: Birgit Covarrubias MD PCP: Weston Henry MD Status: REG DCC Discharge Diet: No Restrictions - Increase fluid intake for the next 48 hours. Discharge Activity: Return to Normal Activity, May Drive - when you are no longer taking narcotic pain medications., May Shower, May Take a Tub Bath - in 7 days Additional Activity Instructions:: Ambulate often the next week after surgery. Nothing in the vagina for 5 days. Call your doctor if your incision/area has: Continuous Slow Oozing, Sudden Increased Bleeding, Increased Pain/ Swelling, Increased Redness, Foul Smelling Discharge Call your doctor if you observe: Fever of 101 or Higher Allergies/Adverse Reactions: Allergies latex Allergy (Unknown, Verified 02/22/18 12:54) Unknown Sulfa (Sulfonamide Antibiotics) Allergy (Verified 02/22/18 12:54) Hives Medications to take at Discharge cholecalciferol (vitamin D3) 2,000 unit capsule 2,000 unit PO QDAY 01/10/18 multivitamin tablet 1 tab PO QDAY 01/10/18 omega 9-ick-awz-fish oil 900 mg-1,400 mg capsule,delayed release 1 cap PO DAILY 01/10/18 lisinopril 20 mg tablet 20 mg PO BID 01/22/18 Amlodipine [Norvasc] 5 mg PO DAILY 02/22/18 Primary Care Physician: Isreal Henry MD [Primary Care Provider] - Please Follow Up With: Birgit Covarrubias MD - [phone] 03/01/18 8558 <Electronically signed by Birgit Covarrubias MD> Date Birgit Covarrubias MD CC: Weston Henry MD CYTOLOGY, BODY FLUID / Collected: 03/01/2018 Status: F Source: [place] CSF 12:[address] [facility] REPOSITORY Order Comment: Comments: PELVIC CELL WASHINGS FOR CYTOLOGY TYPE CODE TESTS RESULT OUT OF RANGE REFERENCE UNITS LAB L350.1000 SEE Normal PATHOLOGY CYTOLOGY,BF REPORT /CSF Result Comment: Specimen submitted to Anatomical Pathology Department for testing. Performed By: #### L350.1000 #### [facility] [address] [place], [address] HISTORY AND PHYSICAL Observed: 03/01/2018 Status: F Source: [place] EXAM 11:[address] [facility] REPOSITORY [facility] Medical Records Department [address] [place] [address] History and Physical 03/01/18 1135 MR#: [id number] Acct: [id number] Name: CONNOR VALLADARES Rep #: [id number] : 1980 38 From: Birgit Covarrubias MD PCP: Weston Henry MD Status: REG SD Y Location: [place] [address] History and Physical Date of Admission: 03/01/18 Intake Visit Reasons: OVARY ISSUES AFTER CHOLECYSTECTOMY Chief Complaint: ER Follow Up Ovarian Cyst Operations Section Manager Required: No Is patient in pain?: No Allergies latex Allergy (Unknown, Verified 01/22/18 08:50) Unknown Sulfa (Sulfonamide Antibiotics) Allergy (Verified 01/22/18 08:50) Hives Medications cholecalciferol (vitamin D3) 2,000 unit capsule 2,000 unit PO QDAY 01/10/18 [History Confirmed 01/22/18] multivitamin tablet 1 tab PO QDAY 01/10/18 [History Confirmed 01/22/18] omega 0-yrb-yvy-fish oil 900 mg-1,400 mg capsule,delayed release 1 cap PO DAILY 01/10/18 [History Confirmed 01/22/18] fluconazole 150 mg tablet 150 mg PO .COMPLEX #2 tab 01/22/18 [Rx Confirmed 01/22/18] lisinopril 20 mg tablet 20 mg PO QDAY 01/22/18 [History Confirmed 01/22/18] Is last menstrual period known: No Post menopausal: No Patient : No : No PFSH Medical History Diarrhea (Acute) Nausea (Acute) Abdominal pain (Acute) Elevated liver enzymes (Acute) PCOS (polycystic ovarian syndrome) (Acute) Hypertension (Chronic) Surgical History Status post (Acute) History of cholecystectomy (Acute) Family History Father Hypertension High cholesterol Cancer Prostate Prostate cancer Social History Smoking Status: Never smoker second hand exposure: No alcohol intake: current alcohol intake frequency: a few times a month details: social substance use type: does not use caffeine: Yes what type of physical activity do you participate in: walking, running, weight training frequency: 3-4 times per week seatbelt use: always do you feel safe at home: Yes 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 she has had intermittent pain a dbloating for the last few months and had her gal lbladder taken out a week ago and the surgeon saw a right ovarian abnormality that he recommended follow up. she had a ct scan that also showed a small pulmonary nodule that is stable form the previous 15 month scan, mild pleural effusions that may be from postop changes. she has a history of ovarian cysts and pain over the years. she has a hisoty rof a rudimentary right ovary. she had pcos in the past. menses are light and infrequent on the IUD. She has also had significant persistent dyspareunia for the last few months that severely interferes with quality of life for her. Female Reproductive History Questions: Dyspareunia: Yes Pregancy History 4 Elective abortions Hx Para 3 Spontaneous abortions Hx # Term Pregnancies Ectopic pregnancies Hx # Pregnancies Multiple births # of living children Past Pregnancies Del. Date Name GA/Weeks Outcome Route Bth Weight Gen Labor Lgth Anesthesia Del Locatn Provider FOB Unknown 2010 Carroll and Ev live - full term Unknown 2006 Jie live - full term Unknown 2009 Stillborn ROS Const Constitutional: Reports system reviewed and no additional complaints, except as docu GI GI: Reports bloating, abdominal pain and as per HPI : Reports as per HPI Exam Const General: cooperative, healthy appearing, comfortable, no acute distress, well developed Nutritional Appearance: average body habitus Orientation: alert HENMT Head: normal to inspection, normocephalic Neck Neck: normal visual inspection, trachea midline Thyroid: thyroid normal Resp Effort AND Inspection: normal respiratory effort GI Inspection: normal to inspection, non-distended Palpation: soft, no hepatosplenomegaly, tender in the LLQ General: bladder normal to palpation External Female Exam: normal appearance of the urethra, erythema (chronic skin discoloration of groin and candidal appearance) Urethra: normal appearance of the urethra, normal palpation, no discharge Speculum Exam - Vagina: normal appearance of the vagina, normal vaginal discharge Speculum Exam - Cervix: normal appearance of the cervix, nontender Bimanual Exam- Vagina AND Uterus: bladder normal to palpation, No cervical tenderness, normal bimanual exam, uterine size normal, uterine shape normal, uterine mobility normal, uterine consistency normal, normal cervical palpation, uterus non-tender Bimanual Exam- Adnexa, other: pelvic support normal, adnexal tenderness (left enlargement) on the left Pelvic Support: normal Skin General: no rashes or lesions noted Assessment AND Plan Problems 1. Ovarian cyst, left N83.202 likely secondary to left ovarian cyst discussed expectant management versus removal, plan laparoscopic ovarian cystectomy possible oophorectomy and sterilization salpingectomy at same time. recommend US and CA125 first. 2. Left lower quadrant pain R10.32 3. Dyspareunia due to medical condition in female N94.19 likely secondary to left ovarian cyst discussed expectant management versus removal, plan laparoscopic ovarian cystectomy possible oophorectomy and sterilization salpingectomy at same time. recommend US and CA125 first. 4. Candidal intertrigo B37.2 Plan hga1c ordered due to recurrent buzz and htn. lengthy discussion about dyspareunia and pelvic pain, left ovarian cyst. discussed expectant management versus surgical removal. discussed risks of torsion and clinical presentation reviewed. patient wishes to proceed with surgical intervention and this is reasonable. i discussed risks of early menopause if oophorectomy is needed and rudimentary ovary is nonfunctional. pateint was seen and clinically relevant updates to the h and p were made 03/01/18 1136 <Electronically signed by Birgit Covarrubias MD> Date Birgit Covarrubias MD Cosigner Signature: Date (if applicable) CC: Weston Henry MD; Birgit Covarrubias MD Signed OVARY (CHOOSE SIDE) Observed: 03/01/2018 Status: F Source: [place] 11:[address] [facility] REPOSITORY Patient: CONNOR VALLADARES : 1980 (38/F) Acct Num: [id number] Phys: Satish GLASS,Birgit Unit Num: [id number] Loc: [facility] Specimen: [id number] Received: 03/01/18 - 1319 Spec Type: OVARY TISSUES TISSUES: Left ovary GROSS DESCRIPTION Received in fixative is one container labeled with the patient's name and designated bilateral fallopian tubes, left ovary. The specimen consists of a cystic ovary identified as left ovary and adjacent fallopian tube and detached right fallopian tube. The right fallopian tube is received in two pieces and measures 5.5 cm in length and 0.5 cm in diameter. The fimbrial end is identified. The left fallopian tube adjacent to the ovary measures 6 cm in length and 0.6 cm in diameter. No tubo-ovarian adhesions are noted. The fimbrial end is identified. A paratubal cyst is also noted measuring 1 cm in greatest dimension. Sections of both fallopian tubes reveal unremarkable cut surfaces. The soft to cystic left ovary weighs 40 gm and measures 6 x 4.5 x 3 cm. The outer surface is smooth without any papillation and it is inked black. Sections reveal multiple cysts filled with clear to hemorrhagic fluid. The largest cyst measures 2.5 cm in greatest dimension. Cafeteria Aide sections are submitted in six cassettes as follows: 1 right fallopian tube, 2 left fallopian tube, 3-6 left ovary. / PETER:baudilio 03/01/18 TC:5 CPT: 38134 x2 HEADER OPERATION: Laparoscopic left salpingo-oophorectomy, right salpingectomy PRE-OP DIAGNOSIS: Left ovarian cyst, left lower quadrant pain, dyspareunia TISSUE SUBMITTED: Bilateral fallopian tubes, left ovary with cyst MICROSCOPIC DESCRIPTION Slides are reviewed. MICROSCOPIC DIAGNOSIS Bilateral fallopian tubes and left ovary with cyst, left salpingo-oophorectomy and right salpingectomy: Left ovary physiologic follicular and corpus luteum cysts (largest cyst measuring 2.5 cm in greatest dimension). Bilateral fallopian tubes - no pathologic diagnosis. Kilo 03/02/18 Signed Anuj Yoon 03/02/18 <signature on file> Performed By: #### POV #### [facility] [address] [place], [place] [address], [address] CBC-COMPLETE BLOOD CNT Collected: 03/01/2018 Status: F Source: [place] NO DIFF 11:[address] [facility] REPOSITORY TYPE CODE TESTS RESULT OUT OF RANGE REFERENCE UNITS LAB L100.1000 4.4-11.0 K/mm3 Normal WBC 8.8 LAB L100.1200 4.2-5.4 M/mm3 Normal RBC 4.98 LAB L100.1300 12.0-15.0 g/dl Normal HGB 14.0 LAB L100.1400 37-47 % Normal HCT 42.4 LAB L100.1500 81-99 fL Normal MCV 85.1 LAB L100.1600 27.0-32.0 pg Normal MCH 28.1 LAB L100.1700 32-36 g/gl Normal MCHC 33.0 LAB L100.1810 11.6-14.6 % Normal RDW CV 14.2 LAB L100.1820 35.1-43.9 fl Normal RDW SD 43.8 LAB L100.1900 150-450 K/mm3 Normal PLT 328 LAB L100.2000 6.2-12.0 fl Normal MPV 11.2 Performed By: #### L400.7600, L100.0500, B101.7450 #### [facility] [address] [facility] [place], [place], [id number] TYPE AND SCREEN Collected: 03/01/2018 Status: F Source: [place] 11:[address] [facility] REPOSITORY Order Comment: Has pt arrived? Y Reason for Type AND Screen/Red Cells: SURGERY Type of Surgery: LAPAROSCOPY TYPE CODE TESTS RESULT OUT OF RANGE REFERENCE UNITS LAB B10.0800 A Normal BLOOD TYPE GEL NEGATIVE LAB B100.4000 Normal Antibody NEGATIVE Screen Performed By: #### L400.7600, L100.0500, B101.7450 #### [facility] [address] [facility] [place], [place], [id number] ,URINE Collected: 03/01/2018 Status: F Source: [place] 10:[address] [facility] REPOSITORY Order Comment: Has pt arrived? Y TYPE CODE TESTS RESULT OUT OF REFERENCE UNITS RANGE LAB L400.8000 Negative Normal HCGUQUAL Negative Result Comment: Very dilute urine specimens, as indicated by a low specific gravity, may not contain pest control service representative levels of hCG. If is still suspected, a first morning urine specimen should be collected 48 hours later and tested. Performed By: #### L400.7600, L100.0500, B101.7450 #### [facility] [address] [place], [address] FLUID/WASHING Observed: 03/01/2018 Status: F Source: [place] 12:[address] [facility] REPOSITORY Patient: CONNOR VALLADARES : 1980 (38/F) Acct Num: [id number] Phys: Satish GLASS,Birgit Unit Num: [id number] Loc: [facility] Specimen: [id number] Received: 03/01/18 - 1324 Spec Type: Fluid TISSUES TISSUES: Pelvis, NOS COMMENT Please correlate with corresponding surgical specimen ([id number]). CYTOLOGY GROSS Received is 20 ml of clear yellow fluid labeled with the patient's name and and designated per the requisition as cell washings. Submitted for cytology preparation including cell block. / 03/01/18 TC:5 CPT: 19084, 36887 CYTOLOGY STUDY Slides are reviewed. The specimen entirely consists of benign mesothelial cells. DIAGNOSIS CYTOLOGY Cell washings for cytology (cytospin and cell block): Negative for malignant cells. SJ:baudilio 03/02/18 HEADER OPERATION: Laparoscopic left salpingo-oophorectomy, right salpingectomy PRE-OP DIAGNOSIS: Left ovarian cyst; left lower quadrant pain, dyspareunia TISSUE SUBMITTED: Cell washings for cytology Signed Anuj Yoon 03/02/18 <signature on file> Performed By: #### PFLU #### [facility] [address] [place], [address] CANCER ANTIGEN 125 Collected: 02/22/2018 Status: F Source: [place] 10:[address] [facility] REPOSITORY TYPE CODE TESTS RESULT OUT OF RANGE REFERENCE UNITS LAB L3100.5000 Normal CA125 2303 Result Comment: TEST RESULT LIMITS Cancer Antigen (CA) 125 23.1 U/mL 0.0 - 38.1 Ronal ECLIA methodology TESTING PERFORMED AT [facility]. ORIGINAL REPORT ON FILE IN LAB CONTAINS ADDITIONAL TEST SITE INFORMATION. Performed By: #### L3100.5000 #### [facility] (refer to report for specific site) refer to report for address and phone number HEMOGLOBIN A1C Collected: 01/29/2018 Status: F Source: [place] 11:[address] [facility] REPOSITORY TYPE CODE TESTS RESULT OUT OF RANGE REFERENCE UNITS LAB L501.9985 4.2-6.3 % Normal HGB A1C 5.5 Performed By: #### L501.9985 #### [facility] [address] [place] [address], [address] #### L3100.5000 #### [facility] (refer to report for specific site) refer to report for address and phone number CANCER ANTIGEN 125 Collected: 01/29/2018 Status: F Source: [place] 11:[address] [facility] REPOSITORY TYPE CODE TESTS RESULT OUT OF RANGE REFERENCE UNITS LAB L3100.5000 0.0-38.1 U/mL High CA125 48.1 2303 Result Comment: Ronal ECLIA methodology Performed at: [address] [id number] Aeronautical Project Engineer: Srinivas Kam PhD, Phone: [phone] Performed By: #### L501.9985 #### [facility] [address] [place] [address], [address] #### L3100.5000 #### [facility] (refer to report for specific site) refer to report for address and phone number TRANSVAGINAL Observed: 01/23/2018 Status: F Source: [place] NON- [facility] PM [facility] Imaging Services [address] [place] [address] Transvaginal Non- MR#: [id number] Acct: [id number] Name: CONNOR VALLADARES Rep #: [id number] : 1980 F 38 From: Supa Miller DO PCP: Weston Henry MD Status: REG CLI Study: Transvaginal Non- Date of Exam: 01/23/18 Exam# [id number] Ordering Dr: Birgit Covarrubias MD STUDY: ULTRASOUND TRANSVAGINAL CLINICAL: Female, 38 years old. Bloating TECHNIQUE: Transvaginal COMPARISON: None. FINDINGS: Normal uterine size measuring 5.5 x 6.3 x 4.7 cm in maximal craniocaudal dimension. There are no myometrial masses. Normal endometrial thickness measuring 6 mm. It is hyperechoic. There are no endometrial masses, and there is no fluid in the endometrial cavity. An IUD is noted in the fundal portion of the endometrium. Normal uterine cervix. Nonvisualization of the right ovary. Normal left ovary, measuring 6.0 x 6.3 x 3.2 cm. There is a 3.1 cm complex cystic nodule. There is no free fluid in the pelvis. US/Transvaginal Non- IMPRESSION: Complex left ovarian cystic nodule. IUD in the uterus. Electronically Signed: Supa Miller DO at 21:45 EDT Tel [phone], Service support , CC: Weston Henry MD; Birgit Covarrubais MD Hand Scudder: Signed PELVIC (NON ) Observed: 01/23/2018 Status: F Source: [place] 12:06 PM [facility] REPOSITORY [facility] Imaging Services [address] [place] [address] Pelvic (Non ) MR#: [id number] Acct: [id number] Name: CONNOR VALLADARES Rep #: [id number] : 1980 F 38 From: Supa Miller DO PCP: Weston Henry MD Status: REG CLI Study: Pelvic (Non ) Date of Exam: 01/23/18 Exam# [id number] Ordering Dr: Birgit Covarrubias MD STUDY: ULTRASOUND TRANSVAGINAL CLINICAL: Female, 38 years old. Bloating TECHNIQUE: Transvaginal COMPARISON: None. FINDINGS: Normal uterine size measuring 5.5 x 6.3 x 4.7 cm in maximal craniocaudal dimension. There are no myometrial masses. Normal endometrial thickness measuring 6 mm. It is hyperechoic. There are no endometrial masses, and there is no fluid in the endometrial cavity. An IUD is noted in the fundal portion of the endometrium. Normal uterine cervix. Nonvisualization of the right ovary. Normal left ovary, measuring 6.0 x 6.3 x 3.2 cm. There is a 3.1 cm complex cystic nodule. There is no free fluid in the pelvis. US/Pelvic (Non ) IMPRESSION: Complex left ovarian cystic nodule. IUD in the uterus. Electronically Signed: Supa Miller DO at 21:45 EDT Tel [phone], Service support , CC: Weston Henry MD; Birgit Covarrubias MD Hand Scudder: Signed KEG RAISER OFFICE VISIT Observed: 01/23/2018 Status: F Source: [place] REPORT 5:26 AM [facility] [address] [place] [address] OFFICE VISIT Date of Service: 01/22/18 MR#: [id number] Acct: [id number] Name: CONNOR VALLADARES Rep #: [id number] : 1980 Provider: Birgit Covarrubias MD Age/Sex: 38/F [place] [facility] [place]: Signed Intake Vital Signs01/22/18 Height 5 ft 5 in 01/22/18 Weight: 189 lb 01/22/18 Body Mass Index (BMI) 31.4 01/22/18 Blood Pressure 197/117 Intake Visit Reasons: OVARY ISSUES AFTER CHOLECYSTECTOMY Chief Complaint: ER Follow Up Ovarian Cyst Operations Section Manager Required: No Is patient in pain?: No Allergies latex Allergy (Unknown, Verified 01/22/18 08:50) Unknown Sulfa (Sulfonamide Antibiotics) Allergy (Verified 01/22/18 08:50) Hives Medications cholecalciferol (vitamin D3) 2,000 unit capsule 2,000 unit PO QDAY 01/10/18 [History Confirmed 01/22/18] multivitamin tablet 1 tab PO QDAY 01/10/18 [History Confirmed 01/22/18] omega 1-eqs-fls-fish oil 900 mg-1,400 mg capsule,delayed release 1 cap PO DAILY 01/10/18 [History Confirmed 01/22/18] fluconazole 150 mg tablet 150 mg PO .COMPLEX #2 tab 01/22/18 [Rx Confirmed 01/22/18] lisinopril 20 mg tablet 20 mg PO QDAY 01/22/18 [History Confirmed 01/22/18] Is last menstrual period known: No Post menopausal: No Patient : No : No PFSH Medical History Diarrhea (Acute) Nausea (Acute) Abdominal pain (Acute) Elevated liver enzymes (Acute) PCOS (polycystic ovarian syndrome) (Acute) Hypertension (Chronic) Surgical History Status post (Acute) History of cholecystectomy (Acute) Family History Father Hypertension High cholesterol Cancer Prostate Prostate cancer Social History Smoking Status: Never smoker second hand exposure: No alcohol intake: current alcohol intake frequency: a few times a month details: social substance use type: does not use caffeine: Yes what type of physical activity do you participate in: walking, running, weight training frequency: 3-4 times per week seatbelt use: always do you feel safe at home: Yes 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 she has had intermittent pain a dbloating for the last few months and had her gal lbladder taken out a week ago and the surgeon saw a right ovarian abnormality that he recommended follow up. she had a ct scan that also showed a small pulmonary nodule that is stable form the previous 15 month scan, mild pleural effusions that may be from postop changes. she has a history of ovarian cysts and pain over the years. she has a hisoty rof a rudimentary right ovary. she had pcos in the past. menses are light and infrequent on the IUD. She has also had significant persistent dyspareunia for the last few months that severely interferes with quality of life for her. Female Reproductive History Questions: Dyspareunia: Yes Pregancy History 4 Elective abortions Hx Para 3 Spontaneous abortions Past Pregnancies Del. DateName GA/Weeks Outcome Route Bth WeighInfant GeLabor LgtAnesthesiDel LocatProvider FOB t n h a n ROS Const Constitutional: Reports system reviewed and no additional complaints, except as docu GI GI: Reports bloating, abdominal pain and as per HPI : Reports as per HPI Exam Const General: cooperative, healthy appearing, comfortable, no acute distress, well developed Nutritional Appearance: average body habitus Orientation: alert HENMT Head: normal to inspection, normocephalic Neck Neck: normal visual inspection, trachea midline Thyroid: thyroid normal Resp Effort AND Inspection: normal respiratory effort GI Inspection: normal to inspection, non-distended Palpation: soft, no hepatosplenomegaly, tender in the LLQ General: bladder normal to palpation External Female Exam: normal appearance of the urethra, erythema (chronic skin discoloration of groin and candidal appearance) Urethra: normal appearance of the urethra, normal palpation, no discharge Speculum Exam - Vagina: normal appearance of the vagina, normal vaginal discharge Speculum Exam - Cervix: normal appearance of the cervix, nontender Bimanual Exam- Vagina AND Uterus: bladder normal to palpation, No cervical tenderness, normal bimanual exam, uterine size normal, uterine shape normal, uterine mobility normal, uterine consistency normal, normal cervical palpation, uterus non-tender Bimanual Exam- Adnexa, other: pelvic support normal, adnexal tenderness (left enlargement) on the left Pelvic Support: normal Skin General: no rashes or lesions noted Assessment AND Plan Problems 1. Ovarian cyst, left N83.202 likely secondary to left ovarian cyst discussed expectant management versus removal, plan laparoscopic ovarian cystectomy possible oophorectomy and sterilization salpingectomy at same time. recommend US and CA125 first. 2. Left lower quadrant pain R10.32 3. Dyspareunia due to medical condition in female N94.19 likely secondary to left ovarian cyst discussed expectant management versus removal, plan laparoscopic ovarian cystectomy possible oophorectomy and sterilization salpingectomy at same time. recommend US and CA125 first. 4. Candidal intertrigo B37.2 Plan hga1c ordered due to recurrent buzz and htn. lengthy discussion about dyspareunia and pelvic pain, left ovarian cyst. discussed expectant management versus surgical removal. discussed risks of torsion and clinical presentation reviewed. patient wishes to proceed with surgical intervention and this is reasonable. i discussed risks of early menopause if oophorectomy is needed and rudimentary ovary is nonfunctional. Orders Orders: Medications New: Coding Level of Care Code Off vis,est,level 4 Diagnoses Ovarian cyst, left N83.202 Left lower quadrant pain R10.32 Abdominal location: left lower quadrant Dyspareunia due to medical condition in female N94.19 Candidal intertrigo B37.2 01/23/18 0526 <Electronically signed by Birgit Covarrubias MD> Date Birgit Covarrubias MD Cosigner Signature: Date (if applicable) CC: 12 LEAD ELECTROCARDIOGRAM Observed: 01/17/2018 Status: F Source: [place] 6:[address] [facility] REPOSITORY [facility] Cardiovascular Services [address] [place] [address] 12 Lead EKG 01/12/18 0634 MR#: [id number] Acct: [id number] Name: CONNOR VALLADARES Rep #: [id number] : 1980 38 From: Mateus Loya MD Attending Dr: Stepan Corona MD Status: DEP [facility] Ordering Dr: Stepan Corona MD Date: 01/12/18 Location: [facility] Sex: F C Admitted: Test Reason : PRE-OP Blood Pressure : / mmHG Vent. Rate : 072 BPM Atrial Rate : 072 BPM P-R Int : 154 ms QRS Dur : 088 ms QT Int : 408 ms P-R-T Axes : 040 025 022 degrees QTc Int : 446 ms Normal sinus rhythm Normal ECG When compared with ECG of 18-JAN-2010 10:51, No significant change was found Confirmed by MATEUS LOYA ([id number]), editor in chief PORTIA MONZON ([id number]) on 01/16/2018 4:09:24 PM Referred By: Stepan Corona Confirmed By:MATEUS LOYA 01/16/18 1609 Date Mateus Loya MD CC: Stepan Corona MD; Weston Henry MD Signed EMERGENCY DEPARTMENT Observed: 01/15/2018 Status: F Source: [place] SUMMARY 7:[address] [facility] Medical Records Department [address] [facility] [place] [address] Emergency Department Summary 01/15/18 0412 MR#: [id number] Acct: [id number] Name: CONNOR VALLADARES Rep #: [id number] : 1980 38 From: Jayce Thorpe MD PCP: Weston Henry MD Status: DEP ER - ER Visit Summary Date of Service: 01/15/18 Chief Complaint: Abdominal pain History of Present Illness: The patient is a [address] Corona and Dr. Carrera. Patient had a laparoscopic cholecystectomy [address] Corona. She reports that her pain worsened yesterday. She reports that it is an aching diffuse pain and a sharp pain at the incision sites. It is 8 out of 10 with movement 5 out of 10 when she remains still. She denies any nausea, vomiting, or diarrhea. Her last bowel movement was today. It was soft. She has had no melena or hematochezia. No dysuria or frequency. Also reports that she has had an 8 pound weight gain. Physical Examination: Vitals: 98.3, 188/120, 78, 20, 98% on room air which is not hypoxic. General: Well-nourished and well-developed. Head: Normocephalic atraumatic. Neck: Supple, no lymphadenopathy. No JVD. Nontender. Cardiovascular: Regular rate and rhythm. No murmurs. Respiratory: No respiratory distress. Clear to auscultation bilaterally. Abdominal: Soft, mild diffuse tenderness palpation, nondistended, normal bowel sounds. No guarding, rebound, or peritoneal signs. Visions are clean, dry, and intact. No evidence of infection. Back: Nontender. Extremities: Nontender, no edema. Skin: Normal color, no rash. Neurologic: Alert and oriented 3. Cranial nerves II through XII are intact. Normal strength and sensation. Psych: Normal affect. Test Results: CBC is marked for segmented neutrophils of 46 and eosinophils of 6. Chem-7 is more for chloride of 108 and creatinine 1.19. LFTs marked for an ALT of 79, AST of 70. Lipase is normal. Clinical Impression(s) from Imaging Studies Abdomen/Pelvis CT 01/15/18 01:58 IMPRESSION: Unremarkable postop findings in the abdomen related to recent laparoscopic cholecystectomy. No evidence for bile leak, hematoma, or abscess. No bile duct dilatation. Small bilateral pleural effusions. 4.9 mm noncalcified left lower lobe lung nodule which has been stable in size for at least 15 months. Based on Fleischner Society Guidelines, suggested follow-up for a 4-6 mm lung nodule is as follows: Low risk patients: Follow-up CT Chest at 12 months. If no change, no further imaging needed. High risk patients: Initial follow-up CT Chest at 6 -12 months and then at 18 - 24 months if no change. 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 Small left renal cyst. No demonstrated urinary calculi or hydronephrosis. Colonic diverticulosis, without evidence for acute diverticulitis. 6.9 cm left ovarian cyst. Would suggest follow-up ultrasound in a few months to assess stability. IUD is in position. Minimal free fluid in the posterior cul-de-sac and the pelvis. Emergency Department Course and Treatment: Patient was treated with Dilaudid IV. Repeat blood pressure is 190/110. Treatment Plan: I had a prolonged discussion with the patient about the findings on the CT. She already knew about the left lower lobe nodule. Her last CT was 15 months ago and this is not changed in size. She also states that she gets ovarian cysts monthly and that this is not unusual for her. Discussed the possible of admission to the hospital and she would like to go home. She will be discharged instructions to follow-up with Dr. Carrera in 1-2 days for repeat blood pressure and evaluation. Follow-up Dr. Corona as soon as possible. I did discuss the patient with Dr. Leonard, who is on-call for Dr. Corona. Disposition: To home in improved and stable condition. Impression: 1. 4 days status post laparoscopic cholecystectomy. 2. 4.9 mm noncalcified left lower lobe nodule. 3. 6.9 cm left ovarian cyst. 4. Small bilateral pleural effusions. This note was generated with [employer] dictation software. It may contain incorrect words, spelling, and punctuation that were not noted in review of the chart prior to signing ED Disposition - Plan for ED Patient: Disposition: Home or Assisted Living Chief Complaint: Abd Pain Instructions: ED Post Op Pain Referrals: Isreal Henry MD [Primary Care Provider] - 1-2 Days if not improving Stepan Corona MD [STAFF PHYSICIAN] - As soon as possible What to do if you have Problems For any increased pain, shortness of breath, bleeding, nausea or vomiting, chest pain, or any unexpected problems, contact your Primary Care Provider. Call [facility] ([phone]) or report to the closest Emergency Room. Call 911 if necessary. 01/15/18 0721 <Electronically signed by Jayce Thorpe MD> Date Jayce Thorpe MD Cosigner Signature (If Indicated): Date CC: Weston Henry MD CBC W/DIFF, AUTOMATED Collected: 01/15/2018 Status: F Source: [place] 2:[address] [facility] REPOSITORY TYPE CODE TESTS RESULT OUT OF RANGE REFERENCE UNITS LAB L100.1000 4.4-11.0 K/mm3 Normal WBC 7.8 LAB L100.1200 4.2-5.4 M/mm3 Normal RBC 4.50 LAB L100.1300 12.0-15.0 g/dl Normal HGB 12.9 LAB L100.1400 37-47 % Normal HCT 38.6 LAB L100.1500 81-99 fL Normal MCV 85.8 LAB L100.1600 27.0-32.0 pg Normal MCH 28.7 LAB L100.1700 32-36 g/gl Normal MCHC 33.4 LAB L100.1810 11.6-14.6 % Normal RDW CV 14.4 LAB L100.1820 35.1-43.9 fl Normal RDW SD 43.9 LAB L100.1900 150-450 K/mm3 Normal PLT 277 LAB L100.2000 6.2-12.0 fl Normal MPV 11.7 LAB L100.2100 47-70 % Low NEUT% 45.9 LAB L100.2200 19-41 % Normal LY% 37.6 LAB L100.2300 0-10 % Normal MONO% 9.4 LAB L100.2400 0-5 % High EO% 6.2 LAB L100.2500 0-1 % Normal BASO% 0.6 LAB L100.2550 0.0-0.9 % Normal IM GRAN % 0.300 Result Comment: IG% - Immature Granulocytes (promyelocytes, myelocytes and metamyelocytes) > 1% indicates that a LEFT SHIFT is Present. LAB L100.2620 2.0-7.7 X10 3/uL Normal Absolute Neut 3.6 LAB L100.2720 0.83-4.51 X10 3/ul Normal Absolute Lymph 2.93 Performed By: #### L100.0100 #### [facility] [place], [address] BASIC METABOLIC Collected: 01/15/2018 Status: F Source: [place] PROFILE (BMP) 2:[address] [facility] REPOSITORY TYPE CODE TESTS RESULT OUT OF RANGE REFERENCE UNITS LAB L501.0100 74-106 mg/dL Normal GLU 89 Result Comment: Please note revised GLUCOSE reference range effective 2017. LAB L501.1000 7-18 mg/dL Normal BUN 10 LAB L501.1100 0.55-1.02 mg/dL High CREAT,SERUM 1.19 Result Comment: The validity of the calculated GFR AND GFRAA in patients over 70 years has not been determined. Clinical correlation is essential. LAB L501.1110 >60 mL/min Low EST GFR 54 Result Comment: Non- GFR Calc LAB L501.1115 >60 mL/min Normal EST GFR - AA 65 Result Comment: GFR Calc LAB L501.1255 ml/min Normal Estimated CRCL 57.68 LAB L501.1300 10-20 RATIO Low BUN/CRE 8.4 LAB L501.2200 8.5-10 mg/dL Normal .1 CA 8.9 LAB L501.5300 136-14 mmol/L Normal 5 NA 141 LAB L501.5600 3.5-5. mmol/L Normal 1 K 3.8 LAB L501.5900 98-107 mmol/L High CL 108 LAB L501.6100 21.0-3 mmol/L Normal 2.0 CO2 27.0 LAB L501.6200 5-15 Normal GAP 6 Performed By: #### L500.2500, L500.3400, L501.2450 #### [facility] [address] [place], [place], [id number] LIVER PROFILE Collected: 01/15/2018 Status: F Source: [place] 2:[address] [facility] REPOSITORY TYPE CODE TESTS RESULT OUT OF RANGE REFERENCE UNITS LAB L501.1500 6.4-8.2 g/dL Normal T PROT 6.6 LAB L501.1800 3.2-5.0 g/dL Normal ALB 3.5 LAB L501.1950 2.2-4.2 g/dL Normal GLOB 3.1 LAB L501.4100 15-37 U/L High AST 70 LAB L501.4305 45-117 U/L Normal ALK P 82 LAB L501.4405 13-56 U/L High ALT 79 LAB L501.4600 0.20-1.00 mg/dL Normal T BILI 0.70 LAB L501.4700 0.00-0.30 mg/dL Normal D BILI 0.20 Performed By: #### L500.2500, L500.3400, L501.2450 #### [facility] [address] [place], [address] LIPASE Collected: 01/15/2018 Status: F Source: [place] 2:[address] [facility] REPOSITORY TYPE CODE TESTS RESULT OUT OF RANGE REFERENCE UNITS LAB L501.2450 73-393 U/L Normal LIPASE 99 Performed By: #### L500.2500, L500.3400, L501.2450 #### [facility] [address] [place], [address] ABDOMEN/PELVIS W IV CONT Observed: 01/15/2018 Status: F Source: [place] ONLY 1:[address] [facility] REPOSITORY [facility] Imaging Services [address] [place] [address] Abdomen/Pelvis W IV Cont ONLY MR#: [id number] Acct: [id number] Name: CONNOR VALLADARES Rep #: [id number] : 1980 F 38 From: Kemar Landeros MD PCP: Weston Henry MD Status: REG ER Study: Abdomen/Pelvis W IV Cont ONLY Date of Exam: 01/15/18 Exam# [id number] Ordering Dr: Jayce Thorpe MD STUDY: CT ABDOMEN AND PELVIS WITH CONTRAST REASON FOR EXAM: Female, 38 years old. Pain and distention. Status post cholecystectomy 2 days ago. 8 pound weight gain since Monday. History of right oophorectomy. History of polycystic ovaries. RADIATION DOSAGE (If Supplied By Facility): CTDIvol = ( 20.16 ) mGy, DLP = ( 2125.69 ) mGycm TECHNIQUE: Transaxial images were obtained from the dome of the diaphragm to the symphysis pubis without oral contrast. 100ML ml of Isovue 300 contrast was administered. Sagittal and coronal images were reconstructed. Individualized dose optimization techniques were used for this CT. COMPARISON: Intraoperative cholangiogram 01/12/2018. Abdominal ultrasound 2018. CT scan abdomen and pelvis 09/28/2016. FINDINGS: There are small bilateral pleural effusions.. As seen on series 2, axial image 12, there is a 4.9 mm noncalcified left lower lobe lung nodule. This nodule can be seen retrospectively on the September 2016 exam and it has not increased in size over the last 15 months. The visualized portions of the heart are within normal limits. There are areas of subcutaneous fat infiltration in the anterior and right anterior abdomen, consistent with sites of access for laparoscopic cholecystectomy. There is no demonstrated abscess or hematoma in these regions. There are 1.5 cm and 1.8 cm low-attenuation space-occupying lesions in the right lobe of the liver, also present on the 2017 exam, with no increase in size. These demonstrate peripheral puddling contrast enhancement and are likely represent hemangiomas. The gallbladder surgically absent. There is mild infiltration of fat in the gallbladder fossa, an unremarkable postoperative finding. There is no evidence for bile leakage, abscess, or hematoma. There is no bile duct dilatation. Normal spleen. Normal pancreas. Normal bilateral adrenal glands. Normal right kidney. There is a small left renal cyst. Otherwise, normal left kidney. Normal visualized stomach. Normal small intestine. There are multiple colonic diverticula consistent with diverticulosis. The appendix is visualized on axial images 72-79. It contains radiodense material but otherwise appears normal, and there is no evidence for appendicitis. Normal abdominal aorta. Normal inferior vena cava. Normal retroperitoneum. Normal urinary bladder. There is a T-shaped IUD in the fundus and body of uterus. There is a 6.9 cm left ovarian cystThere is minimal free fluid in the posterior cul-de-sac of the pelvis. Normal abdominal wall. Normal osseous structures. CT/Abdomen/Pelvis W IV Cont ONLY IMPRESSION: Unremarkable postop findings in the abdomen related to recent laparoscopic cholecystectomy. No evidence for bile leak, hematoma, or abscess. No bile duct dilatation. Small bilateral pleural effusions. 4.9 mm noncalcified left lower lobe lung nodule which has been stable in size for at least 15 months. Based on Fleischner Society Guidelines, suggested follow-up for a 4-6 mm lung nodule is as follows: Low risk patients: Follow-up CT Chest at 12 months. If no change, no further imaging needed. High risk patients: Initial follow-up CT Chest at 6 -12 months and then at 18 - 24 months if no change. 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 Small left renal cyst. No demonstrated urinary calculi or hydronephrosis. Colonic diverticulosis, without evidence for acute diverticulitis. 6.9 cm left ovarian cyst. Would suggest follow-up ultrasound in a few months to assess stability. IUD is in position. Minimal free fluid in the posterior cul-de-sac and the pelvis. : Electronically Signed: Kemar Landeros MD at 3:58 EDT , Service support , CC: Weston Henry MD; Jayce Thorpe MD Hand Scudder: Signed OPERATIVE REPORT Observed: 01/12/2018 Status: F Source: [place] 8:38 [facility] REPOSITORY [facility] Medical Records Department [address] [place] [address] Operative Report 01/12/18 0836 MR#: [id number] Acct: [id number] Name: CONNOR VALLADARES Rep #: [id number] : 1980 38 From: Stepan Corona MD PCP: Weston Henry MD Status: REG [facility] Y Location: [place] [address] Problem List (1) Biliary colic Status: Acute Report of Operation Date of Procedure: 01/12/18 Pre-Operative Diagnosis: Biliary colic Post-Operative Diagnosis: Biliary colic Surgery/Procedure Performed:: Laparoscopic cholecystectomy with intraoperative cholangiogram Specimen's removed: Gallbladder and contents Description of Procedure: After obtaining informed consent patient was brought back to the operating room. General anesthesia was induced. The abdomen was prepped and draped in usual sterile fashion. A small midline incision was made superior to the umbilicus and deepened to the level of fascia. The fascia was elevated and incised. Next the peritoneum was elevated and incised in the same fashion. Finger sweep was performed and the Rao trocar was placed into the abdomen. The balloon was inflated. The abdomen was inflated to 15 mmHg. Next a camera was introduced into the abdomen and the abdomen was inspected. Next under direct visualization three 5-mm ports were placed one subxiphoid and 2 subcostal. The abdomen was inspected. The right ovary appeared to have cysts and small white nodule. Pictures were taken and given to the patient. There is also green to brown colored ascites in the pelvis. Next the gallbladder was elevated and retracted toward the right shoulder. The peritoneum was stripped from the gallbladder. The infundibulum was located and retracted laterally. Next the triangle of Calot was dissected and the cystic duct and cystic artery were identified. Cholangiograms were performed. The Daniel catheter was used to clamp across the infundibulum and the needle was inserted into the gallbladder. Under fluoroscopy contrast was instilled into the gallbladder and the common duct, cystic duct as well as proximal hepatic ducts were identified. There was good filling of the duodenum. There were no filling defects noted in the common bile duct. The clamp was removed as well as the needle and the infundibulum was grasped once more. Three hemolock clips were placed across the cystic duct. The cystic duct was then divided leaving 2 clips on the stump. The cystic artery was clipped and divided in the same fashion. The hook cautery was then used to take the gallbladder off of the gallbladder bed. There was a small amount of bile spillage while the gallbladder is being taken off the liver bed. Hemostasis was obtained. Gallbladder fossa was irrigated and no active bleeding or bile leakage was noted. Next the camera switched to a 5 mm camera and introduced in the subxiphoid port. An Endopouch bag was placed through the umbilical port and the gallbladder was placed into it. The gallbladder was then removed through the umbilical incision. The camera was then reinserted through the umbilical port. The gallbladder fossa was inspected once more and noted to be hemostatic with no leaking bile. The abdomen was suctioned dry the 5 mm ports were removed under direct visualization. The umbilical port was then removed and the air was removed from the abdomen. Next using an 0 Vicryl suture the umbilical fascia was closed in a [id number] fashion. The umbilical port site was irrigated local anesthetic was administered to all the incisions. All the incisions were closed subcuticular 4-0 Monocryl sutures followed by Steri-Strips and dressings. The patient was awoken and taken to PACU in stable condition. - Admit VTE Documentation VTE Mechan Device Prophylaxis: SCD's 01/12/18837 <Electronically signed by Stepan Corona MD> Date Stepan Corona MD CC: Stepan Corona MD; Weston Henry MD Signed DISCHARGE INSTRUCTION Observed: 01/12/2018 Status: F Source: [place] 8:[address] [facility] REPOSITORY [facility] Medical Records Department [address] [place] [address] Instructions for Home/Discharge Instructions 01/12/18834 MR#: [id number] Acct: [id number] Name: CONNOR VALLADARES Rep #: [id number] : 1980 38 From: Stepan Corona MD PCP: Weston Henry MD Status: REG [facility] Discharge Diet: Light diet - advance as tolerated Discharge Activity: Return to Normal Activity, May Not Drive - for 2-3 days or while taking narcotic pain medicataions., - - Do not drive, work heavy equipment or sign legal documents for 24 hours. May shower in (days): 1 - with the bandage in place. Lifting Restrictions: 20 lbs for 2 weeks Additional Activity Instructions:: Pain medication may cause nausea. You should typically eat light foods as you take your pain medications. Pain medication may also cause constipation. If this is a problem for you, please discuss with your doctor. Call your doctor if your incision/area has: Continuous Slow Oozing, Sudden Increased Bleeding, Increased Pain/ Swelling, Increased Redness, Foul Smelling Discharge, Fever of 101 or Higher Call your doctor if you observe: Fever of 101 or Higher Suture Line Care: Avoid Pulling/Pushing, Avoid Pinching/Bending Additional Dressing/Incision Instructions:: Leave operative bandaids on for 2 days. When you remove dressing, leave Steri-Strips on until your follow-up appointment, or until the Steri-Strips fall off on their own. Allergies/Adverse Reactions: Allergies latex Allergy (Unknown, Verified 01/11/18 08:23) Unknown Sulfa (Sulfonamide Antibiotics) Allergy (Verified 01/11/18 08:23) Hives Medications to take at Discharge cholecalciferol (vitamin D3) 2,000 unit capsule 2,000 unit PO QDAY 01/10/18 multivitamin tablet 1 tab PO QDAY 01/10/18 omega 8-ela-ctr-fish oil 900 mg-1,400 mg capsule,delayed release cap PO 01/10/18 Oxycodone HCl/Acetaminophen [Percocet 5/325] 1 - 2 tablet PO Q4H PRN PRN 7 Days #40 tablet 01/12/18 The following prescriptions were given: Oxycodone HCl/Acetaminophen [Percocet 5/325] 1 - 2 tablet PO Q4H PRN PRN 7 Days #40 tablet PRN Reason: Pain Primary Care Physician: Isreal Henry MD [Primary Care Provider] - Please Follow Up With: Stepan Corona MD When: Please call to schedule 2 week follow up appointment. [phone] 01/12/18 0836 <Electronically signed by Stepan Corona MD> Date Stepan Corona MD CC: Weston Henry MD GALLBLADDER Observed: 01/12/2018 Status: F Source: [place] 7:[address] [facility] REPOSITORY Patient: CONNOR VALLADARES : 1980 (38/F) Acct Num: [id number] Phys: Stepan Corona MD Unit Num: [id number] Loc: [facility] Specimen: [id number] Received: 01/12/18 - 0949 Spec Type: GALLBLADDE TISSUES TISSUES: Gallbladder, NOS GROSS DESCRIPTION Received is one container labeled with the patient's name and designated gallbladder. The specimen consists of a gallbladder measuring 8.5 x 3.5 x 3.5 cm. The external surface is smooth and glistening. Focally, it is granular, hemorrhagic and contains cautery artifact. The lumen of the gallbladder contains greenish-yellow mucoid bile and multiple black calculi ranging in size from <0.1 to 1.2 cm in greatest dimension. The mucosa is bile-stained and without any mass lesions. The gallbladder wall averages 0.1 cm in thickness and is free of mass lesions. Cafeteria Aide sections of the gallbladder and the cystic duct are submitted in one cassette. / AM:baudilio 01/12/18 TC:3 CPT: 59567 HEADER OPERATION: Laparoscopic cholecystectomy with IOC PRE-OP DIAGNOSIS: Biliary colic, cholelithiasis TISSUE SUBMITTED: Gallbladder and contents MICROSCOPIC DESCRIPTION Slides are reviewed. MICROSCOPIC DIAGNOSIS Gallbladder and contents: Mild chronic cholecystitis and cholelithiasis. SJ:baudilio 01/15/18 Signed Anujarnaldo Yoon 01/15/18 <signature on file> Performed By: #### PGALL #### [facility] [address], [address] ,URINE Collected: 01/12/2018 Status: F Source: [place] 6:[address] [facility] REPOSITORY TYPE CODE TESTS RESULT OUT OF REFERENCE UNITS RANGE LAB L400.8000 Negative Normal HCGUQUAL Negative Result Comment: Very dilute urine specimens, as indicated by a low specific gravity, may not contain pest control service representative levels of hCG. If is still suspected, a first morning urine specimen should be collected 48 hours later and tested. Performed By: #### L400.7600 #### [facility] [address], [address] CHOLANGIOGRAM/ O Observed: 01/12/2018 Status: F Source: [place] R,INITIAL 12:[address] [facility] REPOSITORY [facility] Imaging Services [address] [place] [address] Cholangiogram/ O R,Initial MR#: [id number] Acct: [id number] Name: CONNOR VALLADARES Julissa Rep #: [id number] : 1980 F 38 From: Owen Marquez MD PCP: Weston Henry MD Status: [facility] Study: Cholangiogram/ O R,Initial Date of Exam: 01/12/18 Exam# [id number] Ordering Dr: Stepan Corona MD CLINICAL HISTORY: Female, 38 years old. Biliary colic and cholelithiasis. PROCEDURE: CHOLANGIOGRAM - Fluoroscopy services provided for clinical procedure. Please refer to operating physician's procedure note for additional detail. FLUOROSCOPY TIME (if supplied): (Not provided.) minutes/seconds TECHNIQUE: 3 intraprocedural, fluoroscopic spot images of the biliary system are submitted. Opacified intrahepatic and extrahepatic ducts appear unremarkable without filling defect. Opacified duodenal C-sweep appears normal. Multiple filling defects are seen within the gallbladder lumen. RAD/Cholangiogram/ O R,Initial IMPRESSION: Unremarkable appearing opacified intrahepatic and extra hepatic bile ducts. No evidence of calculi. Multiple calculi within the gallbladder lumen. No significant incidental finding. Comment: Fluoroscopy services provided for clinical procedure. Please refer to operating physician's procedure note for additional detail. Electronically Signed: Owen Marquez MD at 8:28 EDT , Service support , CC: Stepan Corona MD; Weston Henry MD Hand Scudder: Signed SURGERY VISIT REPORT Observed: 01/10/2018 Status: F Source: [place] 11:[address] [facility] [address] [place] [address] [address] [place] [address] OFFICE VISIT Date of Service: 01/10/18 MR#: [id number] Acct: [id number] Name: CONNOR VALLADARES Rep #: [id number] : 1980 Provider: Stepan Corona MD Age/Sex: 38/F Location: [facility] Status: Signed Intake Vital Signs01/10/18 Height 5 ft 5 in 01/10/18 Weight: 185 lb Intake Visit Reasons: cholecystitis, u/s @ [facility] Operations Section Manager Required: No Is patient in pain?: No Allergies latex Allergy (Unknown, Verified 01/10/18 11:10) Unknown Sulfa (Sulfonamide Antibiotics) Allergy (Verified 02/13/14 01:36) Hives Medications cholecalciferol (vitamin D3) 2,000 unit capsule 2,000 unit PO QDAY 01/10/18 [History Confirmed 01/10/18] multivitamin tablet 1 tab PO QDAY 01/10/18 [History Confirmed 01/10/18] omega 9-ndo-neu-fish oil 900 mg-1,400 mg capsule,delayed release cap PO 01/10/18 [History Confirmed 01/10/18] PFSH Medical History Diarrhea (Acute) Nausea (Acute) Abdominal pain (Acute) Surgical History Status post (Acute) Family History Father Hypertension High cholesterol Cancer Prostate Prostate cancer Social History Smoking Status: Never smoker second hand exposure: No alcohol intake: current alcohol intake frequency: a few times a month what type of physical activity do you participate in: walking, running, weight training frequency: 3-4 times per week seatbelt use: always HPI HPI HPI: CONNOR VALLADARES, is a 38 F who presents to the office today for right upper quadrant pain. The patient reports that for the last year she has been having episodes of epigastric and right upper quadrant pain which radiated to the back and right shoulder. With these episodes come diarrhea and nausea. She says these are becoming more frequent and for the last month they have been happening at least once a week. She is currently in no pain today. She says they were originally brought on by greasy food but now they come out on their own and she says nothing helps until the past. ROS General General: No weight change, appetite, fatigue, colon cancer, breast cancer or weakness HEENT HEENT: No difficulty swallowing, eye injury, eye surgery, swollen glands or hoarseness Endo Endocrine: No thyroid disease, diabetes mellitus, thyroid cancer, Hair loss, heat intolerance or cold intolerance Skin Skin: No rash Musc Musculoskeletal: No back problems or arthritis Cardio Cardiovascular: Yes high blood pressure; no murmur, pacemaker, heart disease, atrial fibrillation, heart attack, heart stent, palpitations, shortness of breat with exertion or chest pain Psych Psychiatric: No anxiety or depression Resp Respiratory: No shortness of breath, No sleep apnea, No cough, No COPD, No asthma, No emphysema, No wheezing Gastro Gastrointestinal: Yes abdominal pain, Yes nausea or vomiting, Yes diarrhea, No constipation, No blood in stool, No acid reflux, No hemorrhoids, No ulcers, Yes gallbladder problem, No black,tarry stools Juan Hematologic: No blood thinners, No blood disorders, No bleeding, No anemia, No blood clots Neuro Neurologic: No weakness, Yes system reviewed and no additional complaints, except as docu Exam Const General: cooperative Orientation: alert, oriented x3 HENMT Head: normal to inspection Ears: hearing grossly normal bilaterally Eyes General: appearance normal, both eyes and all related structures Neck Neck: normal visual inspection Chest Chest palpation AND inspection: normal inspection of the chest Resp Effort AND Inspection: normal respiratory effort Auscultation: clear to auscultation bilaterally Cardio Rate: regular rate Rhythm: regular rhythm Heart Sounds: no murmurs GI Inspection: non-distended Palpation: soft, nontender Musc Cervical Spine: normal cervical lordosis, cervical ROM normal Skin General: no rashes or lesions noted Neuro General: alert, oriented x3 Cranial Nerves: CN's II-XI intact bilaterally Extrem General: normal to inspection Psych Mental Status: mental status grossly normal Assessment AND Plan Problems 1. Biliary colic K80.50 Plan 1. The patient's symptoms are consistent with biliary colic. The patient does have cholelithiasis on ultrasound. I recommended laparoscopic cholecystectomy to the patient. I explained the procedure in detail including the risks. I explained the risks which include but are not limited to bleeding, infection, injury to surrounding organs such as the bowels, liver, bile duct. I explained that injury to any of these organs may require further surgery possibly done at a tertiary care center. The patient understands all the risks and is willing to proceed with surgery. I also explained the possibility of having to convert to an open procedure and performing a common duct exploration or ERCP if a stone was found in the common duct. 2. I will get her scheduled for laparoscopic cholecystectomy this week. Stepan Corona MD Pager: [facility] [address] [place] [address], [address] [place] [address] Office: Medications Discontinued: oxycodone-acetaminophen 5-325 mg Discontinued Reason: 1 - 2 tabs PO Q4H PRN PRN Pain Pt no longer taking Coding Level of Care Code Off vis,new,level 4 Diagnoses Biliary colic K80.50 Time Spent (min) 45 01/10/18 1118 <Electronically signed by Stepan Corona MD> Date [facility] Signature: Date (if applicable) CC: Weston Henry MD ABDOMEN LIMITED Observed: 2018 Status: F Source: [place] 12:[address] [facility] REPOSITORY [facility] Imaging Services [address] [place] [address] Abdomen Limited MR#: [id number] Acct: [id number] Name: CONNOR VALLADARES Rep #: [id number] : 1980 F 38 From: Horace Martines MD PCP: Weston Henry MD Status: REG CLI Study: Abdomen Limited Date of Exam: 01/08/18 Exam# [id number] Ordering Dr: Ranjana Baca MD STUDY: ABDOMINAL ULTRASOUND - RIGHT UPPER QUADRANT REASON FOR VISIT: Female, 38 years old. RUQ PAIN X 6 MONTHS F/U 09/28/16 CT HX OF KIDNEY STONES TECHNIQUE: Ultrasound evaluation of the right upper quadrant was performed with real-time and static cristobal-scale imaging. TECHNICAL QUALITY: Adequate. COMPARISON: 09.28.16 CT FINDINGS: Liver: The liver measures 16.6 cm. There is increased echogenicity consistent with fatty infiltration. The bile ducts are within normal limits. There is hepatic color flow. The direction of portal flow is hepatopetal. There is demonstrated mass lesion. Lesions or echogenic and measure 13 x 12 mm and 20 x 20 mm. Gallbladder: Normal distended gallbladder. The gallbladder wall measures 2.3 mm. There is a positive sonographic Chavez's sign. There is no pericholecystic fluid. There are multiple echogenic structures within the gallbladder, consistent with multiple gallstones. Common Bile Duct (C.B.D.): The common bile duct measures 3.5 mm. Pancreas: Normal size of the head, body and tail of the pancreas. There is normal echogenicity of the pancreas. There is no demonstrated pancreatic mass or cyst. Right Kidney: Normal size of the right kidney. The right kidney measures 10.8 x 4.9 x 4.7 cm. Normal renal cortex. The right cortex measures 1.3 cm. There is no demonstrated renal mass or cyst. There is no right hydronephrosis. There are 2 calcifications in the right kidney. These measure 3 mm. US/Abdomen Limited IMPRESSION: Fatty liver. 2 echogenic lesions in the liver may represent hemangiomas. However these are incompletely evaluated by ultrasound. MRI with gadolinium could further evaluate. Cholelithiasis. There is a positive sonographic Chavez's sign. Cholecystitis should be considered. There is no right hydronephrosis. There are 2 calcifications in the right kidney. These measure 3 mm. Electronically Signed: Horace Martines MD at 17:11 EDT , Service support , CC: Ranjana Baca MD; Weston Henry MD Hand Scudder: Signed PROGRESS Observed: 10/11/2017 Status: COMPLETED Source: [place] 2:40 PM [facility] [place] REPOSITORY HNO ID: [id number] Author: Gissell Estevez Service: (none) Author Type: Shuttler Type: Progress Notes Filed: 10/11/2017 2:41 PM Note Text: Embryo/oocyte cryopreservation yearly storage fee. Mack Swann ALLERGIES ALLERGIES DATE TYPE / CODE NAME / CODE REACTION SEVERITY SOURCE 03/20/2018 Drug Sulfa Hives Unknown [facility] Allergy/4160 (Sulfonamide [facility] [address]82(SNOMED Antibiotics)/ Repository CT) [id number](RX NORM) 03/20/2018 Drug latex/[id number] Unknown Unknown [facility]/4160 921(RXNORM) Hospital [address]48(SNOMED Repository CT) 08/05/2006 DRUG LATEX HIVES [facility] INGREDI/4195 [address] [place] [address](SNOMED Repository CT) 08/05/2006 Drug SULFA HIVES [facility] Class/762481 (SULFONAMIDE [place] 003(SNOMED ANTIBIOTICS) Repository CT) Drug/1985880 Latex HIVES [place] 03([facility] CT) System Repository Drug/8615635 sulfa drugs HIVES [place] 03(OMED [facility] CT) System Repository ENCOUNTERS ENCOUNTERS ADMIT/DISCHARGE ACCOUNT NUMBER ADMITTING ENCOUNTER LOCATION SOURCE CLASS 09/21/2018 [id number] [facility] ding:LABSPEC Repository 09/20/2018 [id number] [facility] ding:LAB Repository 09/07/2018 [id number] [facility] ding:US Repository 09/03/2018 [id number] [facility] ding:MTLAB Repository 06/07/2018 [id number] [facility] ding:LAB Repository 05/14/[id number] Dom Ambulatory [facility] Repository 04/16/2018/04/16/[id number] ding:[facility] Repository 04/16/2018/04/16/[id number] g:[facility] Repository 04/16/[id number] Repository 04/02/2018 [id number] [facility] ding:LAB Repository 03/20/2018/03/20/20 [id number] Ambulatory [facility]MSBuilding: [place] 18 BMS.[facility] Hospital Repository 03/01/2018/03/01/20 [id number] Ambulatory [address] ding:DCC Repository 03/01/2018 [id number] Ambulatory BMSBuilding: [place] BMS.CF.[facility] Repository 02/22/2018 [id number] Ambulatory [facility] ding:LAB Repository 02/22/2018 [id number] Ambulatory [facility] ding:LAB.FUT Repository URE 01/29/2018 [id number] Ambulatory [facility] ding:LAB Repository 01/24/2018 [id number] Ambulatory BMSBuilding: [place] BMS.[facility] Repository 01/23/2018 [id number] Ambulatory [facility] ding:OPUS Repository 01/22/2018/01/23/20 [id number] Ambulatory BMSBuilding: [place] 18 BMS.[facility] Repository 01/15/2018/01/16/20 [id number] Emergency [address] ding:ED Repository 01/12/2018/01/13/20 [id number] Ambulatory [address] ding:SDC Repository 01/12/2018 [id number] Ambulatory BMSBuilding: [place] BMS.CF.[facility] Repository 01/12/2018 [id number] Ambulatory BMSBuilding: [facility] Repository 01/10/2018/01/11/20 [id number] Ambulatory BMSBuilding: [place] 18 BMS.[facility] Repository 2018 [id number] Ambulatory [facility] ding:US Repository 10/11/2017/10/11/19 [id number] Ambulatory [address] Repository PAYERS PAYERS ENCOUNTER GUARANTOR PAYER SUBSCRIBER SOURCE 09/21/2018 NIRANJAN Nielson Primary NIRANJAN A [place] [id number] BUENA Insurance:MEDICAL PLANKDOB: [place] [facility] [id number]: Repository [phone]: [phone] [id number] [phone] () Date:0137-99-38PV [address] [place] [address]MR: 09/21/2018 Secondary NOT GIVENUNK Deepika Insurance:SELF PAY [facility] Number: Effective Repository Date:2018-09-21 09/20/2018 NIRANJAN Nielson Primary NIRANJAN Nielson [place] [id number] BUENA Insurance:MEDICAL PLANKDOB: [facility] [id number] [place] Number: Repository [phone]: [phone] [id number] [phone] () Date:6525-21-88YN [address], [place] [address]QE: 09/20/2018 Secondary NOT GIVENUNK Deepika Insurance:SELF PAY [facility] Number: Effective Repository Date:2018-09-20 09/07/2018 NIRANJAN Nielson Primary CONNOR Julissa PLANKDOB: [place] [id number] BUENA Insurance:ANTHEMPolic [id number] [facility] y Number: [place] [id number] Repository [address]Cgr: ([phone]) Date:1258-32-62QM [phone] () [address] [place] [address]GW: 09/07/2018 Secondary NOT GIVENUNK [place] Insurance:SELF PAY [facility] Number: Effective Repository Date:2018-09-04 09/03/2018 NIRANJAN Nielson Primary CONNOR Julissa PLANKDOB: Deepika [id number] BUENA Insurance:ANTHEMPolic [id number] [facility] VISTA y Number: [place] [id number] Repository [address]Cxh: ([phone]) Date:8014-94-56CF [phone] () [address] [place] [address] 32718OG: 09/03/2018 Secondary NOT GIVENUNK Deepika Insurance:SELF PAY [facility] Number: Effective Repository Date:2018-09-03 06/07/2018 NIRANJAN Nielson Primary CONNOR Julissa PLANKDOB: [place] [id number] BUENA Insurance:ANTHEMPolic [id number] [facility] [place] y Number: [place] [id number] Repository [address]Nbx: [phone]) Date:9030-69-04SB [phone] (HP) [id number] [place] [address] 98003UU: 06/07/2018 Secondary NOT GIVENUNK [place] Insurance:SELF PAY [place] Number: Effective Repository Date:2018-06-07 05/14/2018 Primary NOT [id number] [facility] Number: [facility] [id number] [place] [address] Repository Date:Plan Name:Health 04/16/2018 CONNOR Costa PLANKDOB: Primary CONNOR M PLANKDOB: [place] Insurance:ANTHEMPolic [id number] [facility] y Number: Effective [place] Date:2018-04-16 - [place] Repository [address]Hgb: [id number] [phone]: Name:Rishabh Chu BOX (HP) [address] [place] [address] ()Tel: [phone]: ([phone] 04/16/2018 CONNOR Costa PLANKDOB: Primary CONNOR M PLANKDOB: [place] Insurance:1500 [id number] [place] [address] [facility] [place] Repository [address]Gxz: Date:2018-04-1686689-4600Oqy: [id number] (HP) Name:CD:[id number] O ()Tel: 419) [address]FPUXCA, [place] [phone] (WP) [address]NE: 04/16/2018 CONNOR PLANKDOB: Primary CONNOR PLANKDOB: [place] [facility] [id number] [place] [address] y Number: [place] [id number] [place] [id number]: Date:Plan Name:Health [id number]: () (HP) 04/02/2018 NIRANJAN Nielson Primary CONNOR M PLANKDOB: [place] [id number] BUENA Insurance:ANTHEMPolic [id number] [facility] [place] y Number: [place] [id number] Repository [address]Vwv: ([phone]) Date:2950-30-04HS [phone] () [id number], [place] [address]IZ: 04/02/2018 Secondary NOT GIVENUNK [place] Insurance:SELF PAY Community [facility] Number: Effective Repository Date:2018-04-02 03/20/2018 NIRANJAN Nielson Primary CONNOR M PLANKDOB: [place] [id number] BUENA Insurance:ANTHEMPolic [id number] [facility] y Number: [place] [id number] Repository [address]Kje: ([phone]) Date:4891-94-38YX [phone] () [place]K, [place] [address]LT: 03/20/2018 Secondary NOT GIVENUNK Deepika Insurance:SELF PAY Community [facility] Number: Effective Repository Date:2018-03-20 03/01/2018 NIRANJAN Nielson Primary CONNOR M PLANKDOB: Deep[place] [id number] BUENA Insurance:ANTHEMPolic [id number] [facility] [place] y Number: [place] [id number] Repository [address]Ftz: ([phone]) Date:9827-96-44US [phone] () 143471ZQQEZVJ, [place] [address]GT: 03/01/2018 Secondary NOT GIVENUNK Deepika Insurance:SELF PAY Community [facility] Number: Effective Repository Date:2018-02-02 03/01/2018 NIRANJAN Nielson Primary CONNOR M PLANKDOB: [place] [id number] BUENA Insurance:ANTHEMPolic [id number] [facility] [id number] Repository [address]Mbg: ([phone]) Date:2291-04-06IB [phone] () 701440IQKOXFR, [place] [address]JQ: 03/01/2018 Secondary NOT GIVENUNK [place] Insurance:SELF PAY [facility]: Effective Repository Date:2018-03-01 02/22/2018 NIRANJAN Nisreen Primary CONNOR M PLANKDOB: Deep[place] [id number] BUENA Insurance:ANTHEMPolic [id number] [facility] y Number: [facility] [place] [id number] Repository [address]Ybd: ([phone]) Date:2457-58-88CN [phone] () 547784PLLQQGI, [place] [address]AW: 02/22/2018 Secondary NOT GIVENUNK [place] Insurance:SELF PAY Community [facility] Number: Effective Repository Date:2018-02-22 02/22/2018 NIRANJAN Nisreen Primary CONNOR M PLANKDOB: [place] [id number] BUENA Insurance:ANTHEMPolic [id number] [facility] y Number: [facility] [place] [id number] Repository [address]Lzs: ([phone]) Date:9994-71-69RK [phone] () 427069EVUSVGV, [place] [address]AZ: 02/22/2018 Secondary NOT GIVENUNK Deepika Insurance:SELF PAY [facility] Number: Effective Repository Date:2018-02-22 01/29/2018 NIRANJAN Nisreen Primary CONNOR M PLANKDOB: [place] [id number] BUENA Insurance:ANTHEMPolic [id number] [facility] y Number: [facility] [place] [id number] Repository 24[address]Ric: ([phone]) Date:1561-87-36CC [phone] () 625399GZIXMHO, [place] [address]NB: 01/29/2018 Secondary NOT GIVENUNK Deepika Insurance:SELF PAY [facility] Number: Effective Repository Date:2018-01-29 01/24/2018 NIRANJAN A Primary CONNOR Costa PLANKDOB: [place] [id number] BUENA Insurance:ANTHEMPolic [id number] [facility] [place] y Number: [place] [id number] Repository [address]Xqt: ([phone]) Date:6871-19-31FA [phone] () 194954CKHSABT, [place] [address]GK: 01/24/2018 Secondary NOT GIVENUNK Deepika Insurance:SELF PAY [facility] Number: Effective Repository Date:2018-01-17 01/23/2018 NIRANJAN A Primary CONNOR M PLANKDOB: [place] [id number] BUENA Insurance:ANTHEMPolic [id number] [facility] [place] y Number: [place] [id number] Repository [address]Ojh: ([phone]) Date:5466-69-67HA [phone] () 827018EWBFLDO, [place] [address]WH: 01/23/2018 Secondary NOT GIVENUNK [place] Insurance:SELF PAY Community [facility] Number: Effective Repository Date:2018-01-22 01/22/2018 NIRANJAN A Primary CONNOR [place] PLANKDOB: [place] [id number] BUENA Insurance:ANTHEMPolic [id number] [facility] [place] y Number: [place] [id number] Repository [address]Mkg: ([phone]) Date:6126-98-43WQ [phone] () 659[address]TWNSFCL, [place] [address]UE: 01/22/2018 Secondary NOT GIVENUNK Deepika Insurance:SELF PAY Community [facility] Number: Effective Repository Date:2018-01-22 01/15/2018 NIRANJAN A Primary CONNOR [place] PLANKDOB: Deep[place] [id number] BUENA Insurance:ANTHEMPolic [id number] [facility] [place] y Number: [place] [id number] Repository [address]Grc: ([phone]) Date:4261-78-13JC [phone] () 345058VIQRFTV, [place] [address]BY: 01/15/2018 Secondary NOT GIVENUNK Deepika Insurance:SELF PAY [facility] Number: Effective Repository Date:2018-01-15 01/12/2018 NIRANJAN Nieslon Primary CONNOR [place] PLANKDOB: [place] [id number] BUENA Insurance:ANTHEMPolic [id number] Community [place] y Number: [place] [id number] Repository [address]Kmo: ([phone]) Date:0343-69-97WI [phone] () [id number] [place] [address]XP: 01/12/2018 Secondary NOT GIVENUNK [place] Insurance:SELF PAY [facility] Number: Effective Repository Date:2018-01-10 01/12/2018 NIRANJAN Nielson Primary CONNOR [place] PLANKDOB: [place] [id number] BUENA Insurance:ANTHEMPolic [id number] Community [place] y Number: [place] [id number] Repository [address]Ggd: ([phone]) Date:1080-97-71PJ [phone] () [address] [place] [address]VS: 01/12/2018 Secondary NOT GIVENUNK Deepika Insurance:SELF PAY Community [facility] Number: Effective Repository Date:2018-01-12 01/12/2018 NIRANJAN Nielson Primary CONNOR [place] PLANKDOB: [place] [id number] BUENA Insurance:ANTHEMPolic [id number] Community [place] y Number: [place] [id number] Repository [address]Izs: ([phone]) Date:1441-52-79QP [phone] () [id number] [place] [address]HY: 01/12/2018 Secondary NOT GIVENUNK Deepika Insurance:SELF PAY Community [facility] Number: Effective Repository Date:2018-01-12 01/10/2018 NIRANJAN Nielson Primary CONNOR [place] PLANKDOB: Deep[place] [id number] BUENA Insurance:ANTHEMPolic [id number] Community [place] y Number: [place] [id number] Repository [address]Tch: ([phone]) Date:5598-18-88IC [phone] () 838702NANMJFW, [place] [address]PK: 01/10/2018 Secondary NOT GIVENUNK Deepika Insurance:SELF PAY [facility] Number: Effective Repository Date:2018-01-09 2018 CONNOR VALLADARES342 Primary CONNOR NOLENB: Deepika [place] Insurance:ANTHEMPolic [id number] Number: [facility] [address]Xnb: 419 [id number] [address]ository [phone] () Date:0877-81-10NU [address]ESEDOAG, [place] [address]VO: 2018 Secondary NOT GIVENUNK [place] Insurance:SELF PAY [facility] Number: Effective Repository Date:2018
== END ==
PROVIDERS: Family Provider Family Medicine; PCP Family Medicine; Referring Provider Family Medicine; Visit Provider Family Medicine
DX: N18.9 Chronic kidney disease, unspecified (principal)
CPT/HCPCS: 36415; 80048

== ENCOUNTER → 2018-09-07 09:45 | Outpatient (CLI) | payer BC, SELFPAY ==
--- NOTE | 2018-09-07 09:48 | US_ITS ---
STUDY: RENAL ULTRASOUND - COMPLETE REASON FOR EXAM: Female, 38 years old. Elevated BUN/creatinine TECHNIQUE: Ultrasound evaluation of the kidneys was performed with real-time and static vieira-scale imaging. COMPARISON: None. FINDINGS: RIGHT KIDNEY: Normal location of the right kidney, which is normal in size. The right kidney measures 10.4 x 5.2 x 3.9 cm. There is diffuse thinning of the renal cortex. The renal cortex measures 0.8 cm. There is no right renal mass or cyst. There are no right renal calculi. There is no right hydronephrosis. DISTAL RIGHT URETER: There is non-visualization of the distal right ureter. There is no demonstrated right ureterovesical junction calculus. There is a visualized right ureteral jet. LEFT KIDNEY: Normal location of the left kidney, which is normal in size. The left kidney measures 9.6 x 4.5 x 4.9 cm. There is diffuse thinning of the renal cortex. The renal cortex measures 1.0 cm. There is a simple 1.67 m cyst. There are no left renal calculi. There is no left hydronephrosis. DISTAL LEFT URETER: There is non-visualization of the distal left ureter. There is no demonstrated left ureterovesical junction calculus. There is a visualized left ureteral jet. AORTA: There is no elongation or tortuosity of the abdominal aorta. I.V.C.: The IVC is patent. BLADDER: The bladder is sonographically normal, but incompletely distended US/Kidney and Bladder IMPRESSION: Borderline cortical thinning in both kidneys, no obstructive uropathy or suspicious solid lesion. Simple 1.6 cm left renal cyst Electronically Signed: Dionisio Urias MD at 10:35 EST , Service support ,
--- NOTE | 2018-09-07 11:21 | RDU_ITS ---
Reason For Study: Renal Insufficiency Right Renal Artery Left Renal Artery Right renal artery ostium 124/32 Left renal artery ostium 110/26 RSV/EDV. PSV/EDV. Right renal artery proximal 110/31 Left renal artery proximal PSV/EDV PSV/EDV. 111/33 . Right renal artery mid 130/41 Left renal artery mid 94/35 PSV/EDV. PSV/EDV . Right renal artery distal 90/24 Left renal artery distal 101/40 PSV/EDV. PSV/EDV. Right Renal Parenchyma Left Renal Parenchyma Upper Pole Medula 26/10 PSV/EDV. Left upper pole medulla 32/13 Right upper pole medulla EDR 0.38 . PSV/EDV . Right upper pole medulla R.I. Left upper pole medulla EDR 0.41 . 0.61 . Left upper pole medulla R.I. 0.60 . Upper Cristofer Cortx 14/5 PSV/EDV. UP Cortex 23/11 PSV/EDV. Right upper pole cortex EDR 0.36 . Left upper pole cortex EDR 0.48 . Right upper pole cortex R.I. 0.61 . Left upper pole cortex R.I. 0.53 . Right lower Pole medulla 17/6 Left lower Pole medulla 23/10 PSV/EDV . PSV/EDV . Right lower pole medulla EDR 0.35 . Left lower pole medulla EDR 0.43 . Right lower pole medulla R.I. Left lower pole medulla R.I. 0.56 . 0.63 . Lower Pole Cortx 13/7 PSV/EDV. Lower Pole Cortex 22/9 PSV/EDV. Left lower pole cortex EDR 0.54 . Right lower pole cortex EDR 0.41 . Left lower pole cortex R.I. 0.49 . Right lower pole cortex R.I. 0.60 . Left Renal Hilar Right Renal Hilar LT Hilar avg 49/17 PSV/EDV . Right Hilar avg 48/16 PSV/EDV. Left hilar acceleration time 37 Right hilar acceleration time 44 m/sec. m/sec. Left Renal Dimensions Right Renal Dimensions Left kidney size 10.33 cm . Right kidney size 10.37 cm . Left cortical dimension 1.32 cm . Right cortical dimension 1.36 cm . Aorta Proximal abdominal aorta 1.53cm x 1.43 cm . Proximal abdominal aorta peak systolic velocity is 144 cm/sec . Distal abdominal aorta 1.38cm x 1.38 cm . Distal abdominal aorta peak systolic velocity is 128 cm/sec . Interpretation Summary Normal aortic diameter with slightly increased velocity making renal aortic ratios not reliable <60% bilateral renal artery stenosis Normal resistivity indices not suggestive of intrinsic renal parenchymal disease Right kidney length 10.37cm Left kidney length 10.33cm Ordering Physician: Weston Henry Referring Physician: Weston Henry Performed By: Nu Arellano, RAY, RVT
== END ==
PROVIDERS: Family Provider Family Medicine; PCP Family Medicine; Referring Provider Family Medicine; Visit Provider Family Medicine
DX: N28.9 Disorder of kidney and ureter, unspecified (principal)
CPT/HCPCS: 76770; 93975

== ENCOUNTER → 2018-09-20 10:42 | Outpatient (CLI) | payer OTHER, SELFPAY ==
[2018-03-20 09:20] VITALS: BMI 30.9
[2018-09-20 11:38] LABS: International Normalized Ratio 0.9; Partial Thromboplast Time 26.9 Seconds (24.1-36.2); Prothrombin Time (Protime)PT. 12.6 SECONDS (11.7-14.9)
[2018-09-20 11:39] LABS: Absolute Lymphocyte Count 3.01 X10^3/ul (0.83-4.51); Absolute Neutrophil Count 5.3 X10^3/uL (2.0-7.7); Basophil% 1.1 % (0-1); Eosinophil# 0.29 X10^3/uL; Eosinophils% 3.1 % (0-5); Hematocrit 44.7 % (37-47); Hemoglobin 14.5 g/dl (12.0-15.0); Lymphocyte # 3.01 X10^3/ul (4.0); Lymphocyte % 32.3 % (19-41); Mean Corp Hgb Conc 32.4 g/gl (32-36); Mean Corpuscular Hgb 27.8 pg (27.0-32.0); Mean Corpuscular Volume 85.6 fL (81-99); Mean Platelet Vol. 10.7 fl (6.2-12.0); Monocyte# 0.63 X10^3/uL; Monocyte% 6.8 % (0-10); Neutrophil # 5.25 X10^3/uL (2.7-7.7); Neutrophil % 56.4 % (47-70); Platelet Count 264 K/mm3 (150-450); RBC Distribution Width CV 14.6 % (11.6-14.6); Red Blood Count 5.22 M/mm3 (4.2-5.4); White Blood Count 9.3 K/mm3 (4.4-11.0)
[2018-09-20 11:40] LABS: POSITIVE COUNT NO; POSITIVE DIFFERENTIAL NO; POSITIVE MORPHOLOGY NO
[2018-09-20 11:48] LABS: Anion Gap 10 (5-15); BUN 14 mg/dL (7-18); Calcium,Total 9.3 mg/dL (8.5-10.1); Chloride 103 mmol/L (98-107); Creatinine, Serum 1.08 mg/dL (0.55-1.02); EST Glomerular Filtration Rate 60 mL/min (>60); Est Glom Filt Rate - Afr Amer 73 mL/min (>60); Phosphorus 2.8 mg/dL (2.5-4.9); Potassium 4.2 mmol/L (3.5-5.1); Sodium Level 140 mmol/L (136-145); Uric Acid 6.1 mg/dL (2.6-6.0)
[2018-09-20 11:57] LABS: Color, Urine Yellow (Yellow); Glucose, Dipstick Normal (Normal); Ketone-Dipstick Negative (Negative); Leukocyte Esterase-Dipstick Negative /ul (Negative); Nitrite-Dipstick Negative (Negative); Occult Blood-Urine Negative /ul (Negative); Protein-Dipstick Negative (Negative); Specific Gravity, Urine 1.015 (1.002-1.030); Urine Bilirubin Dipstick Negative (Negative); Urine Clarity Clear (Clear); Urine Urobilinogen Normal (Normal); Urine pH 6.5 (5.0 - 8.0)
[2018-09-20 12:10] LABS: Protein, Urine (Random) < 6.0 mg/dL (<11.9); Protein:Creat Ratio 70 mg/g CRE (0-200)
[2018-09-21 11:52] LABS: 24H Urine Creat. Total Vol. 1.88 L; 24HR. UA Prot. Total Volume 1875 mL; 24HR. Urine Creatinine 1.45 g/24 HR (0.70-1.90); Urine Protein (24 Hour) < 6.0 mg/dL (<11.9)
[2018-09-25 12:06] LABS: Albumin 4.3 g/dL (2.9-4.4); Alpha-1-Globulins 0.2 g/dL (0.0-0.4); Alpha-2-Globulins 0.7 g/dL (0.4-1.0); Complement C3 140 mg/dL (82-167); Cytoplasmic Ab (C-ANCA) <1:20 titer (Neg:<1:20); Immunoglobulin A 83 mg/dL (87-352); Immunoglobulin G 952 mg/dL (700-1600); Immunoglobulin M 59 mg/dL (26-217); PROEL- TOTAL PROTEIN 7.3 g/dL (6.0-8.5)
[2018-09-25 13:56] LABS: Complement CH50 > 60 U/mL (>41); Perinuclear Ab (P-ANCA) <1:20 titer (Neg:<1:20)
== END ==
PROVIDERS: Family Provider Family Medicine; PCP Family Medicine; Referring Provider Internal Medicine Nephrology; Visit Provider Internal Medicine Nephrology
DX: N18.3 Chronic kidney disease, stage 3 (moderate) (principal)
CPT/HCPCS: 36415; 80051; 81002; 81050; 82310; 82565; 82570; 82784; 84100; 84156; 84165; 84520; 84550; 85025; 85610; 85730; 86160; 86162; 86256; 86334; 86335

== ENCOUNTER → 2018-09-21 11:09 | Outpatient (CLI) | payer OTHER, SELFPAY ==
[2018-03-20 09:20] VITALS: BMI 30.9
== END ==
PROVIDERS: Family Provider Family Medicine; PCP Family Medicine; Referring Provider Internal Medicine Nephrology; Visit Provider Internal Medicine Nephrology
DX: Z00.00 Encounter for general adult medical examination without abnormal findings (principal)

== ENCOUNTER → 2018-10-26 10:19 | Outpatient (CLI) | payer OTHER, SELFPAY ==
[2018-03-20 09:20] VITALS: BMI 30.9
[2018-10-26 12:08] LABS: Albumin, Serum 4.2 g/dL (3.2-5.0); BUN 14 mg/dL (7-18); Calcium,Total 9.2 mg/dL (8.5-10.1); Chloride 107 mmol/L (98-107); EST Glomerular Filtration Rate 53 mL/min (>60); Est Glom Filt Rate - Afr Amer 64 mL/min (>60); Phosphorus 2.8 mg/dL (2.5-4.9); Sodium Level 144 mmol/L (136-145)
== END ==
PROVIDERS: Family Provider Family Medicine; PCP Family Medicine; Referring Provider Internal Medicine Nephrology; Visit Provider Internal Medicine Nephrology
DX: N18.3 Chronic kidney disease, stage 3 (moderate) (principal)
CPT/HCPCS: 36415; 82040; 82310; 82374; 82435; 82565; 84100; 84132; 84295; 84520

== ENCOUNTER → 2019-02-08 10:07 | Outpatient (CLI) | payer OTHER, SELFPAY ==
[2018-03-20 09:20] VITALS: BMI 30.9
[2019-02-08 11:03] LABS: Protein, Urine (Random) < 6.0 mg/dL (<11.9)
[2019-02-08 11:13] LABS: Color, Urine Yellow (Yellow); Glucose, Dipstick Normal (Normal); Ketone-Dipstick Negative (Negative); Leukocyte Esterase-Dipstick Negative /ul (Negative); Nitrite-Dipstick Negative (Negative); Occult Blood-Urine Negative /ul (Negative); Protein-Dipstick Negative (Negative); Urine Bilirubin Dipstick Negative (Negative); Urine Clarity Sl. Cloudy (Clear); Urine Urobilinogen Normal (Normal); Urine pH 6.5 (5.0 - 8.0)
[2019-02-08 11:20] LABS: BUN 16 mg/dL (7-18); Calcium,Total 9.1 mg/dL (8.5-10.1); Chloride 110 mmol/L (98-107); Creatinine, Serum 1.11 mg/dL (0.55-1.02); EST Glomerular Filtration Rate 58 mL/min (>60); Est Glom Filt Rate - Afr Amer 70 mL/min (>60); Phosphorus 2.8 mg/dL (2.5-4.9); Potassium 3.9 mmol/L (3.5-5.1); Sodium Level 144 mmol/L (136-145)
== END ==
PROVIDERS: Family Provider Family Medicine; PCP Family Medicine; Referring Provider Internal Medicine Nephrology; Visit Provider Internal Medicine Nephrology
DX: N18.3 Chronic kidney disease, stage 3 (moderate) (principal)
CPT/HCPCS: 36415; 81002; 82040; 82310; 82374; 82435; 82565; 82570; 84100; 84132; 84156; 84295; 84520

== ENCOUNTER → 2019-04-12 10:34 | Outpatient (CLI) | payer OTHER, SELFPAY ==
[2018-03-20 09:20] VITALS: BMI 30.9
[2019-04-12 11:55] LABS: BUN 17 mg/dL (7-18); Calcium,Total 8.7 mg/dL (8.5-10.1); Chloride 104 mmol/L (98-107); Creatinine, Serum 1.02 mg/dL (0.55-1.02); EST Glomerular Filtration Rate 64 mL/min (>60); Est Glom Filt Rate - Afr Amer 78 mL/min (>60); Phosphorus 2.9 mg/dL (2.5-4.9); Potassium 4.2 mmol/L (3.5-5.1); Sodium Level 136 mmol/L (136-145)
== END ==
PROVIDERS: Family Provider Family Medicine; PCP Family Medicine; Referring Provider Internal Medicine Nephrology; Visit Provider Internal Medicine Nephrology
DX: N18.3 Chronic kidney disease, stage 3 (moderate) (principal)
CPT/HCPCS: 36415; 82040; 82310; 82374; 82435; 82565; 84100; 84132; 84295; 84520

== ENCOUNTER → 2019-07-10 16:42 | Outpatient (CLI) | payer OTHER, SELFPAY ==
[2019-07-10 09:25] VITALS: BMI 30.9
[2019-07-16 09:48] LABS: HPV APTIMA, High Risk Negative (Negative)
== END ==
PROVIDERS: Family Provider Family Medicine; PCP Family Medicine; Referring Provider Nurse Practitioner Women's Health; Visit Provider Nurse Practitioner Women's Health
DX: Z12.4 Encounter for screening for malignant neoplasm of cervix (principal)
CPT/HCPCS: 87624; 88175; G0145

== ENCOUNTER → 2019-09-17 12:05 | Outpatient (CLI) | payer OTHER, SELFPAY ==
[2019-07-10 09:25] VITALS: BMI 30.9
[2019-09-17 16:43] LABS: Anion Gap 5 (5-15); BUN 16 mg/dL (7-18); BUN/Creat Ratio 15.1 RATIO (10-20); Calcium,Total 9.1 mg/dL (8.5-10.1); Chloride 107 mmol/L (98-107); Cholesterol 279 mg/dL (200); Creatinine, Serum 1.06 mg/dL (0.55-1.02); EST Glomerular Filtration Rate 61 mL/min (>60); Est Glom Filt Rate - Afr Amer 74 mL/min (>60); Glucose 73 mg/dL (74-106); High Density Lipoprotein 54 mg/dL; Potassium 4.2 mmol/L (3.5-5.1); Sodium Level 139 mmol/L (136-145); Triglycerides 186 mg/dL; Very Low Density Lipoprotein 37 mg/dL (5-40)
== END ==
PROVIDERS: Family Provider Family Medicine; PCP Family Medicine; Visit Provider Family Medicine
DX: I10 Essential (primary) hypertension (principal)
CPT/HCPCS: 36415; 80048; 80061

== ENCOUNTER → 2020-02-20 09:34 | Outpatient (CLI) | payer BC, SELFPAY ==
[2019-07-10 09:25] VITALS: BMI 30.9
[2020-02-20 12:37] LABS: Anion Gap 8 (5-15); BUN 19 mg/dL (7-18); BUN/Creat Ratio 16.7 RATIO (10-20); Calcium,Total 9.7 mg/dL (8.5-10.1); Chloride 106 mmol/L (98-107); Cholesterol 220 mg/dL (200); Creatinine, Serum 1.14 mg/dL (0.55-1.02); EST Glomerular Filtration Rate 56 mL/min (>60); Est Glom Filt Rate - Afr Amer 68 mL/min (>60); Glucose 97 mg/dL (74-106); High Density Lipoprotein 43 mg/dL; Potassium 4.1 mmol/L (3.5-5.1); Sodium Level 140 mmol/L (136-145); Triglycerides 136 mg/dL; Very Low Density Lipoprotein 27 mg/dL (5-40)
== END ==
PROVIDERS: PCP Family Medicine; Referring Provider Family Medicine; Visit Provider Family Medicine
DX: N18.9 Chronic kidney disease, unspecified (principal); E78.2 Mixed hyperlipidemia
CPT/HCPCS: 36415; 80048; 80061

== ENCOUNTER → 2020-09-14 13:39 | Outpatient (CLI) | payer BC, SELFPAY ==
[2020-08-11 08:27] VITALS: BMI 32.5
--- NOTE | 2020-09-14 13:41 | BI_ITS ---
MAMMOGRAPHY - BILATERAL SCREENING REASON FOR EXAM: Female, 40 years old. Routine annual screening examination. PERTINENT HISTORY: Grandmother with breast cancer. TECHNIQUE: Digital bilateral breast quiana (3D mammographic acquisition) in the CC and MLO projections. 2-D mediolateral oblique (MLO) and craniocaudad (CC) views of both breasts were obtained. CAD: Full Field Digital Mammography with Computer Added Detection was performed. COMPARISON: None. Baseline examination. FINDINGS: Breast Composition: There are scattered areas of fibroglandular density. There are no dominant masses or suspicious calcifications. There is a 6.2 mm well-defined nodule in the axillary region of the right breast suggestive of a small benign appearing lymph node. No other significant abnormalities are identified. BI/SCREEN MAMM (CAD) W/QUIANA BILAT IMPRESSION: Negative screening mammogram. Yearly followup mammogram recommended. (A) ASSESSMENT CATEGORY: BIRADS Category 2: Benign. A letter regarding these results will be sent to the patient by the facility within 30 days. Approximately 10% of breast cancers are not detected by mammography. A normal mammogram should not delay biopsy of a clinically suspicious abnormality. [id number] Electronically Signed: Alexandru Gomez, at 8:36 EST , Service support ,
== END ==
PROVIDERS: PCP Family Medicine; Referring Provider Nurse Practitioner Women's Health; Visit Provider Nurse Practitioner Women's Health
DX: Z12.31 Encounter for screening mammogram for malignant neoplasm of breast (principal)
CPT/HCPCS: 77063; 77067

== ENCOUNTER 2021-11-23 09:53 | Outpatient (CLI) | payer OTHER, BC, SELFPAY ==
--- NOTE | 2021-11-23 09:59 | RAD_ITS ---
STUDY: X-RAY CHEST REASON FOR EXAM: Female, 41 years old. WHEEZING . One-week history of cough. TECHNIQUE: PA and lateral views of the chest. COMPARISON: Comparison is made with prior study dated 06/07/2014. FINDINGS: The lungs are clear and expanded. There is no demonstrated pleural abnormality. Normal size heart. Normal mediastinum and finn. Normal visualized pulmonary arteries. Normal visualized aortic arch and descending thoracic aorta. Normal visualized thoracic spine. Normal visualized ribs, clavicles, and shoulders. There is no demonstrated abnormality of the visualized soft tissue structures of the upper abdomen. RAD/Chest PA and Lateral IMPRESSION: Normal x-ray examination of the chest. Electronically Signed: Alexandru Gomez MD at 10:21 [facility] ,
== END 2021-11-23 23:59 | disposition home or self-care (01) ==
PROVIDERS: PCP Family Medicine; Referring Provider Family Medicine; Visit Provider Family Medicine
DX: R06.2 Wheezing (principal); Z20.822 Contact with and (suspected) exposure to COVID-19; R05.9 Cough, unspecified
CPT/HCPCS: 71046; 87633; 87635; U0003; U0005

== ENCOUNTER → 2022-01-07 | Outpatient (CLI) | payer OTHER, SELFPAY ==
--- NOTE | 2022-01-07 07:41 | BI_ITS ---
MAMMOGRAPHY - BILATERAL SCREENING 3-D TOMOSYNTHESIS REASON FOR EXAM: Female, 42 years old. screening for breast cancer PERTINENT HISTORY: No significant family history. TECHNIQUE: 2-D mammograms and 3-D Tomosynthesis of the breast (s) were performed. CAD was performed. COMPARISON: 09/14/2020 FINDINGS: The breast composition is composed of scattered fibroglandular density. Scattered benign calcifications are seen. No dense spiculated masses or suspicious microcalcifications are identified. No architectural distortion is identified. There is no skin thickening or retraction. There has been no significant change since the prior study. BI/SCRN MAMM (CAD)W/QUIANA BILAT IMPRESSION: No mammographic signs of malignancy. Routine yearly mammograms recommended. ASSESSMENT CATEGORY: BIRADS Category 1: Negative. A letter regarding these results will be sent to the patient by the facility within 30 days. FOLLOW UP RECOMMENDATION: Yearly follow up mammogram recommended. (A) Approximately 10% of breast cancers are not detected by mammography. A normal mammogram should not delay biopsy of a clinically suspicious abnormality. Electronically Signed: Dyllan Anne MD at 9:12 EDT ,
== END | disposition home or self-care (01) ==
LOC: OPBI 07:40
PROVIDERS: PCP Family Medicine; Visit Provider Nurse Practitioner Women's Health
DX: Z12.31 Encounter for screening mammogram for malignant neoplasm of breast (principal)
CPT/HCPCS: 77063; 77067

== ENCOUNTER → 2023-01-09 | Outpatient (CLI) | payer OTHER, SELFPAY ==
--- NOTE | 2023-01-09 09:48 | BI_ITS ---
MAMMOGRAPHY - BILATERAL SCREENING REASON FOR EXAM: Female, 43 years old. Routine annual screening examination. PERTINENT HISTORY: Grandmother with breast cancer. TECHNIQUE: Digital bilateral breast quiana (3D mammographic acquisition) in the CC and MLO projections. 2-D mediolateral oblique (MLO) and craniocaudad (CC) views of both breasts were obtained. CAD: Full Field Digital Mammography with Computer Added Detection was performed. COMPARISON: Comparison is made with prior study January 07, 2022 and September 14, 2020. FINDINGS: Breast Composition: There are scattered areas of fibroglandular density. There are no dominant masses or suspicious calcifications. Stable 6.2 mm well-defined nodule in the axillary region of the right breast suggestive of a small lymph node. No other significant abnormalities are identified. There has been no significant change since the prior study. BI/SCRN MAMM (CAD)W/QUIANA BILAT IMPRESSION: Stable bilateral screening mammogram. Yearly follow-up mammogram recommended. (A) ASSESSMENT CATEGORY: BIRADS Category 2: Benign. A letter regarding these results will be sent to the patient by the facility within 30 days. Approximately 10% of breast cancers are not detected by mammography. A normal mammogram should not delay biopsy of a clinically suspicious abnormality. [id number] Electronically Signed: Alexandru Gomez MD at 10:57 EDT ,
== END | disposition home or self-care (01) ==
LOC: OPBI 09:46
PROVIDERS: PCP Family Medicine; Referring Provider Nurse Practitioner Women's Health; Visit Provider Nurse Practitioner Women's Health
DX: Z12.31 Encounter for screening mammogram for malignant neoplasm of breast (principal)
CPT/HCPCS: 77063; 77067

== ENCOUNTER → 2023-12-25 | Outpatient (CLI) | payer OTHER, SELFPAY ==
[2023-12-27 17:07] LABS: HPV APTIMA, High Risk Negative (Negative)
== END | disposition home or self-care (01) ==
LOC: LABSPEC 10:58
PROVIDERS: PCP Family Medicine; Referring Provider Nurse Practitioner Women's Health; Visit Provider Nurse Practitioner Women's Health
DX: Z12.4 Encounter for screening for malignant neoplasm of cervix (principal); Z78.0 Asymptomatic menopausal state
CPT/HCPCS: 87624; 88175; G0145

== ENCOUNTER → 2024-01-12 | Outpatient (CLI) | payer OTHER, SELFPAY ==
--- NOTE | 2024-01-12 07:25 | BI_ITS ---
MAMMOGRAPHY - BILATERAL SCREENING REASON FOR EXAM: Female, 44 years old. Routine annual screening examination. PERTINENT HISTORY: Grandmother with breast cancer. TECHNIQUE: Digital bilateral breast quiana (3D mammographic acquisition) in the CC and MLO projections. 2-D mediolateral oblique (MLO) and craniocaudad (CC) views of both breasts were obtained. CAD: Full Field Digital Mammography with Computer Added Detection was performed. COMPARISON: Comparison is made with prior study dated January 09, 2023 and January 07, 2022. FINDINGS: Breast Composition: There are scattered areas of fibroglandular density. There are no dominant masses or suspicious calcifications. There is a stable 6.2 mm well-defined nodule in the axillary region of the right breast. This is suggestive of a small benign-appearing axillary lymph node. No other significant abnormalities are identified. There has been no significant change since the prior study. BI/SCRN MAMM (CAD)W/QUIANA BILAT IMPRESSION: Stable bilateral screening mammogram. Yearly follow-up mammogram recommended. (A) ASSESSMENT CATEGORY: BIRADS Category 2: Benign. A letter regarding these results will be sent to the patient by the facility within 30 days. Approximately 10% of breast cancers are not detected by mammography. A normal mammogram should not delay biopsy of a clinically suspicious abnormality. [id number] Electronically Signed: Alexandru Gomez MD at 8:38 EDT ,
== END | disposition home or self-care (01) ==
LOC: OPBI 07:24
PROVIDERS: PCP Family Medicine; Referring Provider Nurse Practitioner Women's Health; Visit Provider Nurse Practitioner Women's Health
DX: Z12.31 Encounter for screening mammogram for malignant neoplasm of breast (principal)
CPT/HCPCS: 77063; 77067

== ENCOUNTER → 2025-01-13 | Outpatient (CLI) | payer OTHER, SELFPAY ==
--- NOTE | 2025-01-13 10:15 | BI_ITS ---
EXAM: SCRN MAMM (CAD)W/QUIANA BILAT DATE: 01/13/2025 CLINICAL HISTORY: F, Age 45 y/o , SCREEN FOR BREAST CANCER BREAST CANCER RISK ASSESSMENT: Has not been calculated. TECHNIQUE: Bilateral screening digital breast tomosynthesis with 2D and 3D images. Computer aided detection. COMPARISON: Prior exam(s) dated 01/12/2024 and 01/09/2023. FINDINGS: TISSUE DENSITY: The breast tissue is heterogenously dense, which may obscure small masses. Bilateral Breast Mammographic Findings: No suspicious masses, suspicious cluster of microcalcifications, architectural distortion or secondary sign of malignancy is identified in either breast. A stable 7 mm lobulated well-circumscribed isodense mass in the superior outer, far posterior aspect of the right breast is noted. This appears to have a fatty hilum on the quiana images and is most compatible with an intramammary lymph node. BI/SCRN MAMM (CAD)W/QUIANA BILAT IMPRESSION: OVERALL FINAL ASSESSMENT: BIRADS 2 BENIGN FINDING RECOMMENDATION: Routine annual follow-up in 1 Year A letter with findings and recommendations will be mailed to the patient. Reading Location: [id number]
== END | disposition home or self-care (01) ==
PROVIDERS: PCP Family Medicine; Referring Provider Nurse Practitioner Women's Health; Visit Provider Nurse Practitioner Women's Health
DX: Z12.31 Encounter for screening mammogram for malignant neoplasm of breast (principal)
CPT/HCPCS: 77063; 77067

== ENCOUNTER → 2025-02-06 | Outpatient (CLI) | payer OTHER, SELFPAY ==
--- NOTE | 2025-02-06 14:49 | US_ITS ---
EXAM: US Pelvis Transabdominal and Transvaginal, Complete CLINICAL INDICATION: PELVIC CRAMPING; S/P IUD PLACEMENT TECHNIQUE: Real-time complete transabdominal and transvaginal pelvic ultrasound with image documentation. Transvaginal imaging was used for better evaluation of the endometrium and adnexa. COMPARISON: No relevant prior studies available. FINDINGS: UTERUS/CERVIX: Indwelling IUD in the lower uterine segment. Possible malrotated. Clinical correlation is recommended. No myometrial mass. The uterus measures 7.8 x 4.9 x 4.6 cm. The endometrial stripe measures 0.8 cm in thickness. RIGHT OVARY: Right ovary surgically absent. LEFT OVARY: Left ovary surgically absent. FREE FLUID: No free fluid. BLADDER: Unremarkable as visualized. Wall is normal thickness for degree of distention. US/Pelvic w/ Transvaginal IMPRESSION: Indwelling IUD in the lower uterine segment. Possible malrotated. Clinical co rrelation is recommended. Reading Location: [facility]
== END | disposition home or self-care (01) ==
LOC: US 14:48
PROVIDERS: PCP Family Medicine; Referring Provider Nurse Practitioner Family; Visit Provider Nurse Practitioner Family
DX: R10.2 Pelvic and perineal pain (principal); Z97.5 Presence of (intrauterine) contraceptive device; Z79.890 Hormone replacement therapy
CPT/HCPCS: 76830; 76856

== ENCOUNTER → 2025-02-06 | Outpatient (CLI) | payer OTHER, SELFPAY | END | disposition home or self-care (01) | LOC: LABSPEC 11:43 | PROVIDERS: PCP Family Medicine; Referring Provider Nurse Practitioner Family; Visit Provider Nurse Practitioner Family | DX: R10.2 Pelvic and perineal pain (principal) | CPT/HCPCS: 87086 ==